=== PATIENT | female | born 1930 | race Caucasian/White ===

== ENCOUNTER 2016-08-08 12:07 | Outpatient (CLI) | payer MEDICARE, OTHER ==
--- NOTE | 2016-08-08 13:32 | XRAY Report ---
LEFT HIP AND PELVIS: 08/08/2016 CLINICAL INDICATION: Fall, left hip pain. FINDINGS: Frontal view of the hips and pelvis and frogleg lateral view of the left hip demonstrate n o evidence of fracture or dislocation. Mild osteoarthritis is present. Vascular calcifications are noted, and a pessary is present in the pelvis. IMPRESSION: MILD OSTEOARTHRITIS. NO EVIDENCE OF FRACTURE. JOB #: [id number] EXT JOB #:[id number]
== END 2016-08-08 12:08 | disposition home or self-care (01) ==
LOC: DI 12:07
PROVIDERS: ATTEND Internal Medicine
DX: M16.12 Unilateral primary osteoarthritis, left hip (principal)

== ENCOUNTER 2016-11-23 18:34 | Inpatient (IN) | payer MEDICARE, OTHER ==
[2016-11-23 19:16] LABS: BASOPHILS # (AUTO) 0.1 10^3/uL (0.0-0.1); EOSINOPHILS # (AUTO) 0.2 10^3/uL (0.0-0.7); EOSINOPHILS % (AUTO) 2.8 %; HCT - HEMATOCRIT 44.1 % (37.0-47.0); HGB - HEMOGLOBIN 14.6 g/dL (12.0-16.0); LYMPHOCYTES % (AUTO) 13.2 %; MEAN CORPUSCULAR HEMOGLOBIN 32.9 pg (27.0-31.0); MEAN CORPUSCULAR HGB CONC 33.2 g/dL (32.0-36.0); MEAN CORPUSCULAR VOLUME 99.2 fL (81.0-99.0); MEAN PLATELET VOLUME 7.7 fL (7.9-10.8); MONOCYTES # (AUTO) 0.6 10^3/uL (0.0-1.0); MONOCYTES % (AUTO) 7.7 %; NEUTROPHILS # (AUTO) 5.8 10^3/uL (1.5-6.6); NEUTROPHILS % (AUTO) 75.3 %; RED BLOOD COUNT 4.45 10^6/uL (4.20-5.40); UNCORRECTED WHITE BLOOD COUNT 7.7 x10^3/uL; WHITE BLOOD COUNT 7.7 x10^3/uL (4.8-10.8)
[2016-11-23] MEDS ORDERED: IPRATROPIUM/ALBUTEROL 3 ML NEB INH STA (19:24)
[2016-11-23 19:29] LABS: ALBUMIN/GLOBULIN RATIO 1.1 (1.0-2.2); BILIRUBIN,TOTAL 0.8 mg/dL (0.2-1.0); CALCIUM 9.5 mg/dL (8.5-10.3); CREATININE 1.5 mg/dL (0.4-1.0); POTASSIUM 4.2 mmol/L (3.5-5.0); TOTAL PROTEIN 6.7 g/dL (6.7-8.2)
--- NOTE | 2016-11-23 19:47 | XRAY Preliminary Report ---
Exam: XR Chest 2 View PA/LAT IMPRESSION: Acute on chronic lung disease consisting of right lung base infiltrates. [facility] SITE ID: [id number]
[2016-11-23] MEDS ORDERED: IPRATROPIUM/ALBUTEROL 3 ML NEB INH ONE (19:49)
--- NOTE | 2016-11-23 20:03 | XRAY Report ---
EXAM: CHEST RADIOGRAPHY EXAM DATE: 11/23/2016 07:41 p.m. CLINICAL HISTORY: Cough. COMPARISON: 12/18/2015. TECHNIQUE: 2 views. FINDINGS: Lungs/Pleura: Emphysematous changes. New interstitial infiltrates involving the periphery inferior zaman lf of right lung. Interval clearing of the left lung base airspace infiltrates and effusions. No vasc ular congestion nor pneumothorax. Mediastinum: Stable moderate cardiomegaly. No adenopathy. Other: Scoliosis. IMPRESSION: Acute on chronic lung disease consisting of right lung base infiltrates. [facility] Referring Provider Line: [phone] SITE ID: [id number]
[2016-11-23] MEDS ORDERED: FUROSEMIDE 40 MG/4 ML VIAL IVP STA (20:19)
[2016-11-23] MEDS ORDERED: cefTRIAXone 1 GM VIAL IVP STA (20:20)
[2016-11-23] MEDS ORDERED: AZITHROMYCIN INJ 500 MG in SODIUM CHLORIDE 0.9% 250 ML IV STA (20:20)
--- NOTE | 2016-11-23 20:21 | ED Physician Documentation ---
History of Present Illness - Stated complaint Stated Complaint: SOA - Chief complaint Chief Complaint: Resp - History obtained from History obtained from: Patient, Family - History of Present Illness Timing: How many days ago (4) Pain level max: 0 Pain level now: 0 Improved by: oxygen Worsened by: exertion - Additonal information Additional information: Female who presents to the emergency department states not feeling well for the past 3-4 days. Recently started on Levaquin for UTI. Has had increased coughing since that time. No fevers. She states she does not have a history of COPD, but does use 2 L O2 at home [place]. Patient also has a history of congestive heart failure. Review of Systems Ten Systems: 10 systems reviewed and negative Constitutional: denies: Fever, Chills Ears: denies: Ear pain Nose: denies: Rhinorrhea / runny nose, Congestion Throat: denies: Sore throat Cardiac: denies: Chest pain / pressure Respiratory: reports: Cough, Wheezing GI: denies: Abdominal Pain, Nausea, Vomiting, Diarrhea Skin: denies: Rash Musculoskeletal: denies: Neck pain, Back pain Neurologic: denies: Headache PD PAST MEDICAL HISTORY - Past Medical History Past Medical History: Yes Cardiovascular: Congestive heart failure, Hypertension Respiratory: None Neuro: None Endocrine/Autoimmune: None GI: None : Incontinence, Frequency HEENT: Glaucoma, Chronic hearing loss, Other Psych: None Musculoskeletal: Osteoarthritis Derm: Other - Past Surgical History Past Surgical History: Yes General: Appendectomy 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 HEENT: Cataracts Derm: Skin cancer surgery - Present Medications Home Medications: Ambulatory Orders Medication Instructions Recorded Confirmed Multivitamin [Multivitamins] 1 each PO DAILY 09/27/14 11/23/16 Ascorbic Acid [Vitamin C] 1,000 mg PO DAILY 12/18/15 11/23/16 Calcium Carbonate/Vitamin D3 1 each PO DAILY 12/18/15 11/23/16 [Calcium 600-Vit D3 400 Tablet] [place]-3S/Dha/Epa/Fish Oil [Fish 1 each PO DAILY 12/18/15 11/23/16 Oil 1,200 mg Softgel] Timolol 0.5% Ophth Drops [Timoptic 1 drops EACHEYE BID 12/19/15 11/23/16 0.5% Ophth Drops] Furosemide [Lasix] 40 mg PO DAILY #30 tablet 12/20/15 11/23/16 Potassium Chloride [Micro-K] 10 meq PO BIDWM #60 capsule 12/20/15 11/23/16 Lisinopril 20 mg PO DAILY 11/23/16 11/23/16 Metoprolol Succinate [Toprol Xl] 50 mg PO QPM 11/23/16 11/23/16 - Allergies Allergies/Adverse Reactions: Allergies Allergy/AdvReac Type Severity Reaction Status Date / Time No Known Drug Allergies Allergy Verified 11/23/16 18:50 - Social History Does the pt smoke?: No Smoking Status: Never smoker Does the pt drink ETOH?: Yes Does the pt have substance abuse?: No - Immunizations Immunizations are current?: Yes - POLST Patient has POLST: No PD ED PE NORMAL - Vitals Vital signs reviewed: Yes - General General: Alert and oriented X 3, No acute distress, Well developed/nourished - HEENT HEENT: PERRL, Moist mucous membranes - Neck Neck: Supple, no meningeal sign - Cardiac Cardiac: RRR - Respiratory Respiratory: No respiratory distress, Other (Diminished breath sounds, wheezing , crackles bilaterally) - Abdomen Abdomen: Soft, Non tender, Non distended - Derm Derm: Warm and dry, No rash - Extremities Extremities: No calf tenderness / cord, Other (2+ bilateral lower extremity edema) - Neuro Neuro: Alert and oriented X 3 - Psych Psych: Normal mood, Normal affect Results - Vitals Vitals: Vital Signs - 24 hr 11/23/16 11/23/16 11/23/16 18:37 19:00 19:53 Temperature 36.5 C Heart Rate 80 78 69 Respiratory 32 H 22 19 Rate Blood Pressure 114/61 115/76 O2 Saturation 83 L 94 11/23/16 11/23/16 20:45 20:59 Temperature 36.8 C Heart Rate 72 Respiratory 18 Rate Blood Pressure 105/75 O2 Saturation 99 Oxygen O2 Source [With Activity] Nasal cannula O2 Source [Without Activity] Room air O2 Source Room air Oxygen Flow Rate 3 - Labs Labs: Laboratory Tests 11/23/16 11/23/16 11/23/16 19:00 19:00 19:00 WBC 7.7 RBC 4.45 Hgb 14.6 Hct 44.1 MCV 99.2 H MCH 32.9 H MCHC 33.2 RDW 15.0 Plt Count 202 MPV 7.7 L Neut # 5.8 Lymph # 1.0 L [place] # 0.6 Eos # 0.2 Baso # 0.1 Absolute Nucleated RBC 0.00 Nucleated RBCs 0.0 Sodium 135 Potassium 4.2 Chloride 100 L Carbon Dioxide 26 Anion Gap 9.0 BUN 35 H Creatinine 1.5 H Estimated GFR (MDRD) 33 L Glucose 113 H Calcium 9.5 Total Bilirubin 0.8 AST 32 ALT 20 Alkaline Phosphatase 50 B-Natriuretic Peptide 1554 H Total Protein 6.7 Albumin 3.5 Globulin 3.2 Albumin/Globulin Ratio 1.1 Lipase 38 Urine Color Urine Clarity Urine pH Ur Specific [place] Urine Protein Urine Glucose (UA) Urine Ketones Urine Occult Blood Urine Nitrite Urine Bilirubin Urine Urobilinogen Ur Leukocyte Esterase Urine RBC Urine WBC Ur Squamous Epith Cells Urine Bacteria Ur Microscopic Review Urine Culture Comments 11/23/16 20:20 WBC RBC Hgb Hct MCV MCH MCHC RDW Plt Count MPV Neut # Lymph # [place] # Eos # Baso # Absolute Nucleated RBC Nucleated RBCs Sodium Potassium Chloride Carbon Dioxide Anion Gap BUN Creatinine Estimated GFR (MDRD) Glucose Calcium Total Bilirubin AST ALT Alkaline Phosphatase B-Natriuretic Peptide Total Protein Albumin Globulin Albumin/Globulin Ratio Lipase Urine Color YELLOW Urine Clarity SL. CLOUDY Urine pH 6.5 Ur Specific [place] 1.015 Urine Protein NEGATIVE Urine Glucose (UA) NEGATIVE Urine Ketones NEGATIVE Urine Occult Blood TRACE-INTA Urine Nitrite NEGATIVE Urine Bilirubin NEGATIVE Urine Urobilinogen 0.2 (NORMAL) Ur Leukocyte Esterase LARGE H Urine RBC 0-5 Urine WBC >25 H Ur Squamous Epith Cells MANY Squamous H Urine Bacteria None Seen Ur Microscopic Review INDICATED Urine Culture Comments NOT INDICATED - Rads (name of study) cxr Radiology: Prelim report reviewed, EMP read contemporaneously, See rad report ( Acute on chronic lung disease consisting of right lung base infiltrates. 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 She is found to have a right lower lobe pneumonia as well as what appears to be a CHF exacerbation. States that she has never been diagnosed with COPD, but is pursed lip breathing and her smoked in the house for many years. She does feel better after nebulizer treatment. Discussed the case with the hospitalist, who accepts. How she has already been on Levaquin, we will continue this as an inpatient. Baseline BNP is approx 400-500 This document was made in part using voice recognition software. While efforts are made to proofread this document, sound alike and grammatical errors may occur. Departure - Departure Disposition: [facility] DC/Xfer Clinical Impression: Hypoxia Pneumonia Qualifiers: Pneumonia type: due to unspecified organism Laterality: right Lung location: lower lobe of lung Qualified Code(s): J18.1 - Lobar pneumonia, unspecified organism CHF exacerbation Qualifiers: Congestive heart failure type: unspecified congestive heart failure type Qualified Code(s): I50.9 - Heart failure, unspecified Condition: Stable Discharge Date/Time: 11/23/16 22:40
[2016-11-23 20:37] LABS: BILIRUBIN,URINE NEGATIVE (NEGATIVE); PH,URINE 6.5 PH (5.0-7.5)
[2016-11-23] MEDS ORDERED: FUROSEMIDE 40 MG/4 ML VIAL ONE (20:39)
[2016-11-23] MEDS ORDERED: cefTRIAXone 1 GM VIAL ONE (20:39)
[2016-11-23 20:42] LABS: UA w/ MICROSCOPIC CHARGE YES
[2016-11-23 20:55] LABS: UR CULTURE IF IND NOT INDICATED; WBC,URINE >25 /HPF (0-5)
[2016-11-23] MEDS ORDERED: SODIUM CHLORIDE FLUSH 0.9% 10 ML SYRINGE IVP PRN (21:42)
[2016-11-23 22:36] LABS: BASOPHILS # (AUTO) 0.1 10^3/uL (0.0-0.1); BASOPHILS % (AUTO) 1.1 %; EOSINOPHILS # (AUTO) 0.2 10^3/uL (0.0-0.7); EOSINOPHILS % (AUTO) 2.5 %; HCT - HEMATOCRIT 44.4 % (37.0-47.0); HGB - HEMOGLOBIN 14.5 g/dL (12.0-16.0); LYMPHOCYTES # (AUTO) 0.9 10^3/uL (1.5-3.5); LYMPHOCYTES % (AUTO) 12.7 %; MEAN CORPUSCULAR HEMOGLOBIN 32.8 pg (27.0-31.0); MEAN CORPUSCULAR HGB CONC 32.7 g/dL (32.0-36.0); MEAN CORPUSCULAR VOLUME 100.2 fL (81.0-99.0); MEAN PLATELET VOLUME 7.6 fL (7.9-10.8); MONOCYTES # (AUTO) 0.5 10^3/uL (0.0-1.0); MONOCYTES % (AUTO) 7.6 %; NEUTROPHILS # (AUTO) 5.3 10^3/uL (1.5-6.6); NEUTROPHILS % (AUTO) 76.1 %; NUCLEATED RED BLOOD CELLS AUTO 0.1 /100WBC; RED BLOOD COUNT 4.43 10^6/uL (4.20-5.40); RED CELL DISTRIBUTION WIDTH 15.2 % (12.0-15.0); UNCORRECTED WHITE BLOOD COUNT 6.9 x10^3/uL; WHITE BLOOD COUNT 6.9 x10^3/uL (4.8-10.8)
[2016-11-23 22:44] LABS: CREATININE 1.4 mg/dL (0.4-1.0); MAGNESIUM 2.1 mg/dL (1.7-2.8); POTASSIUM 3.9 mmol/L (3.5-5.0)
--- NOTE | 2016-11-24 00:48 | HISTORY & PHYSICAL EXAMINATION ---
Chief Complaint - Chief Complaint Chief Complaint: weakness History of Present Illness - Admitted From Admitted From:: ED - History Obtained From History obtained from: patient and daughter - History of Present Illness HPI Comment/Other: Patient is an 86 y/o female who was brought in by her daughter today because she was noticed to be increasingly weak and somewhat confused. He daughter reports that the patient usually presents this way whenever she has an infection. She also seemed to have a decreased appetite today and went to bed at 6pm. She was seen by her PCP on 11/21/16 where she was diagnose with pneumonia based on clinical exam and a UTI after a urine dipstick was done. and was started on levaquin She reports some BE. She is usually on 2L of Oxygen N? C. She denies chest pain, coughing or fever. She denies abdominal pain, nausea or vomiting. She has been experiencing urinary frequency as well. In the ED an image of the chest confirmed the pneumonia. She was also found to have an elevated BNP at 1500. Review of Systems - Constitutional Constitutional: reports: Fatigue, Weakness, Poor appetite. denies: Fever, Diaphoresis, Night sweats - Eyes Eyes: denies: Pain, Irritation, Blurred vision, Vision loss, Dipolpia - Ears, Nose & Throat Ears, Nose & Throat: denies: Hearing loss, Vertigo, Nasal pain - Cardiovascular Cariovascular: denies: Irregular heart rate, Palpitations, Chest pain, Edema, Syncope - Respiratory Respiratory: reports: SOB at rest. denies: Wheezing - Gastrointestinal Gastrointestinal: denies: Abdominal pain, Abdominal distention, Constipation, Diarrhea, Nausea, Vomiting - Genitourinary Genitourinary: reports: Frequency. denies: Dysuria, Urgency, Flank pain - Musculoskeletal Musculoskeletal: denies: Muscle pain, Back pain - Integumentary Integumentary: denies: Rash, Pruritis, Lesions - Neurological Neurological: denies: Focal weakness, Headache, Dizziness, Numbness - Psychiatric Psychiatric: denies: Depression, Anxiety, Suicidal - Endocrine Endocrine: denies: Polyphagia, Intolerance to cold - Hematologic/Lymphatic Hematologic/Lymphatic: denies: Anemia, Bruising, Petechiae, Blood clots History - Past Medical History Cardiovascular: reports: Congestive heart failure, Hypertension Respiratory: reports: None Neuro: reports: None Endocrine/Autoimmune: reports: None GI: reports: None : reports: Incontinence, Frequency HEENT: reports: Glaucoma, Chronic hearing loss, Other Psych: reports: None Musculoskeletal: reports: Osteoarthritis Derm: reports: Other MRSA Hx?: No Other Past Medical History: warts removed, precancerous lesions removed - Past Surgical History General: reports: Appendectomy 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: 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: Other HEENT: reports: Cataracts Derm: reports: Skin cancer surgery - Family & Social History Family History: Mother: (old age), Hypertension, Father: , Sister: Hypertension Living arrangement: At home Living Situation: Other (daughter and her family) - Substance History Use: Uses substance without health or social issues: NONE, Alcohol (a glass of wine with dinner) Abuse: Recurrent use of substance despite neg consequences: NONE Dependence: Experiences withdrawal or developed tolerances: NONE - POLST Patient has POLST: No Meds/Allgy - Home Medications Home Medications: Ambulatory Orders Medication Instructions Recorded Confirmed Multivitamin [Multivitamins] 1 each PO DAILY 09/27/14 11/23/16 Ascorbic Acid [Vitamin C] 1,000 mg PO DAILY 12/18/15 11/23/16 Calcium Carbonate/Vitamin D3 1 each PO DAILY 12/18/15 11/23/16 [Calcium 600-Vit D3 400 Tablet] [place]-3S/Dha/Epa/Fish Oil [Fish 1 each PO DAILY 12/18/15 11/23/16 Oil 1,200 mg Softgel] Timolol 0.5% Ophth Drops [Timoptic 1 drops EACHEYE BID 12/19/15 11/23/16 0.5% Ophth Drops] Furosemide [Lasix] 40 mg PO DAILY #30 tablet 12/20/15 11/23/16 Potassium Chloride [Micro-K] 10 meq PO BIDWM #60 capsule 12/20/15 11/23/16 Lisinopril 20 mg PO DAILY 11/23/16 11/23/16 Metoprolol Succinate [Toprol Xl] 50 mg PO QPM 11/23/16 11/23/16 - Allergies Allergies/Adverse Reactions: Allergies Allergy/AdvReac Type Severity Reaction Status Date / Time No Known Drug Allergies Allergy Verified 11/23/16 18:50 Exam - Vital Signs Vital Signs: Vital Signs x48h Temp Pulse Pulse Resp BP BP Pulse Ox 11/23/16 23:00 36.3 C L 69 20 102/61 94 11/23/16 22:06 77 18 158/87 H 96 - Physical Exam General Appearance: positive: No acute distress, Alert Eyes Bilateral: positive: Normal inspection, PERRL, EOMI ENT: positive: ENT inspection nml, Pharynx nml, No signs of dehydration Neck: positive: Nml inspection, No JVD Respiratory: positive: Chest non-tender, No respiratory distress, Other (coarse breath sounds bilaterally). negative: Wheezes Cardiovascular: positive: Regular rate & rhythm, No murmur Abdomen: positive: Non-tender, No organomegaly, Nml bowel sounds, No distention Skin: positive: Color nml, No rash Extremities: positive: Non-tender, Nml appearance, No pedal edema Neurologic/Psychiatric: positive: Oriented x3 Conclusion/Plan - Problem List (1) Community acquired bacterial pneumonia Conclusion/Plan: Acute On levaquin 750 mg IV q48hrs (2) CHF exacerbation Conclusion/Plan: Lasix 20 mg IV bid Daily weights Restrict daily sodium intake to 2gm Chek BNP daily Qualifiers: Congestive heart failure type: unspecified congestive heart failure type Qualified Code(s): I50.9 - Heart failure, unspecified (3) Hypertension Conclusion/Plan: Uncontrolled Continue lisinopril and metoprolol Qualifiers: Hypertension type: essential hypertension Qualified Code(s): I10 - Essential (primary) hypertension (4) Glaucoma Conclusion/Plan: Stable Continue timolol opthalmic drops - Lab Results Fish Bones: 11/23/16 22:23 11/23/16 22:23 Issues/Core Measures - Anticipated LOS Anticipated Stay Length: 2 or more midnights - DVT/VTE - Prophylaxis VTE/DVT Device ordered at admit?: Yes VTE/DVT Prophylaxis med ordered at admit?: Yes
[2016-11-24] MEDS: SODIUM CHLORIDE FLUSH 0.9% 10 ML SYRINGE IVP SCH ×4 (00:56→21:06)
[2016-11-24] MEDS ORDERED: FUROSEMIDE 20 MG/2 ML VIAL IVP SCH (06:00)
[2016-11-24 06:57] LABS: BASOPHILS # (AUTO) 0.1 10^3/uL (0.0-0.1); BASOPHILS % (AUTO) 0.8 %; EOSINOPHILS # (AUTO) 0.2 10^3/uL (0.0-0.7); EOSINOPHILS % (AUTO) 2.9 %; HCT - HEMATOCRIT 42.3 % (37.0-47.0); LYMPHOCYTES # (AUTO) 0.9 10^3/uL (1.5-3.5); LYMPHOCYTES % (AUTO) 12.1 %; MEAN CORPUSCULAR HEMOGLOBIN 33.1 pg (27.0-31.0); MEAN CORPUSCULAR HGB CONC 33.1 g/dL (32.0-36.0); MEAN CORPUSCULAR VOLUME 99.9 fL (81.0-99.0); MEAN PLATELET VOLUME 7.6 fL (7.9-10.8); MONOCYTES # (AUTO) 0.6 10^3/uL (0.0-1.0); MONOCYTES % (AUTO) 8.7 %; NEUTROPHILS # (AUTO) 5.3 10^3/uL (1.5-6.6); NEUTROPHILS % (AUTO) 75.5 %; RED BLOOD COUNT 4.23 10^6/uL (4.20-5.40); RED CELL DISTRIBUTION WIDTH 14.9 % (12.0-15.0)
[2016-11-24 07:09] LABS: CALCIUM 8.2 mg/dL (8.5-10.3); CREATININE 1.4 mg/dL (0.4-1.0); POTASSIUM 3.4 mmol/L (3.5-5.0)
[2016-11-24] MEDS ORDERED: POTASSIUM CHLORIDE 20 MEQ TABLET PO ONE (08:45)
[2016-11-24] MEDS: LISINOPRIL 20 MG TABLET PO SCH (08:54)
[2016-11-24] MEDS: TIMOLOL 0.5% OPHTH DROPS EACHEYE SCH ×2 (08:55→21:17)
[2016-11-24] MEDS: HEPARIN 5,000 UNIT/ML VIAL SUBQ SCH ×2 (08:57→21:07)
[2016-11-24] MEDS: POTASSIUM CHLORIDE 10 MEQ CAPSULE PO SCH ×2 (08:57→17:03)
[2016-11-24] MEDS: POLYETHYLENE GLYCOL 3350 17 GM PACKET PO SCH (09:00)
[2016-11-24] MEDS ORDERED: PETROLATUM WHITE 5 GM PACKET TOP PRN (11:52)
--- NOTE | 2016-11-24 14:23 | PROVIDER PROGRESS NOTE ---
Subjective - Prog Note Date Prog Note Date: 11/24/16 Prog Note Time: 14:18 - Subjective Pt reports feeling: Improved Subjective: she has Chronic shortness of breath. She was diagnosed with congestive heart failure little over a year ago which manifested as dyspnea on exertion. She is able to walk in her home from room to room as long as she rests. Over the last 2 weeks she is gotten progressively more short of breath and it was acute enough that she came to the emergency room and that so she was found to have pneumonia. Walking from the family room to the next bc of a step was impossible the last 2 days. Between yesterday and today she is received IV antibiotics. 1 dose of Levaquin 750 mg.z Lasix 40 mg once then 20 mg this am. She was able to get up and walk around in the room, walk to the bathroom. She is definitely very dyspneic on exertion but she tells me she could not have done this the day before yesterday. She denies chest pain, palpitations. No abdominal pain. Does have a poor appetite. Current Medications - Current Medications Current Medications: Active Medications Furosemide (Lasix Inj 20mg Vial) 20 mg IVP BIDDIURETIC [facility] Last Admin: 11/24/16 06:07 Dose: 20 mg Heparin Sodium (Porcine) () 5,000 unit SUBQ BID [facility] Last Admin: 11/24/16 08:57 Dose: 5,000 unit Levofloxacin (Levaquin 750 Mg/150 Ml) 150 mls @ 100 mls/hr IV Q48H [facility] Last Admin: 11/24/16 00:56 Dose: 100 mls/hr Lisinopril (Zestril) 20 mg PO DAILY [facility] Last Admin: 11/24/16 08:54 Dose: Not Given Metoprolol Succinate (Toprol Xl) 50 mg PO QPM [facility] Petrolatum (Vaseline) 5 gm TOP PRN PRN PRN Reason: Dry Lips Polyethylene Glycol (Miralax) 17 gm PO DAILY [facility] Last Admin: 11/24/16 09:00 Dose: 17 gm Potassium Chloride (Micro-K) 10 meq PO BIDWM [facility] Last Admin: 11/24/16 08:57 Dose: 10 meq Sodium Chloride (Normal Saline Flush 0.9%) 10 ml IVP PRN PRN PRN Reason: NEEDED PER PROVIDER ORDERS Sodium Chloride (Normal Saline Flush 0.9%) 10 ml IVP Q8HR [facility] Last Admin: 11/24/16 06:06 Dose: 10 ml Timolol Maleate (Timoptic 0.5% Ophth Drops) 1 drops EACHEYE BID [facility] Last Admin: 11/24/16 08:55 Dose: 1 drops Multivitamin [Multivitamins] 1 each PO DAILY 09/27/14 Ascorbic Acid [Vitamin C] 1,000 mg PO DAILY 12/18/15 Calcium Carbonate/Vitamin D3 [Calcium 600-Vit D3 400 Tablet] 1 each PO DAILY [place]-3S/Dha/Epa/Fish Oil [Fish Oil 1,200 mg Softgel] 1 each PO DAILY 12/18/15 Timolol 0.5% Ophth Drops [Timoptic 0.5% Ophth Drops] 1 drops EACHEYE BID Lisinopril 20 mg PO DAILY 11/23/16 Metoprolol Succinate [Toprol Xl] 50 mg PO QPM 11/23/16 Objective - Vital Signs/Intake & Output Reviewed Vital Signs: Yes Vital Signs: Vital Signs x48h Temp Pulse Resp BP Pulse Ox 11/24/16 14:07 36.2 C L 80 18 91/76 96 11/24/16 07:59 36.4 C L 79 16 98/56 L 94 Intake & Output: Intake & Output 11/21/16 11/22/16 11/23/16 11/24/16 23:59 23:59 23:59 23:59 Intake Total 510 Output Total 575 50 Balance -575 460 - Objective General Appearance: positive: No acute distress, Alert, Other (frail, tiny, elderly female with glasses) Eyes Bilateral: positive: PERRL, EOMI ENT: positive: Pharynx nml Neck: positive: No JVD. negative: Lymphadenopathy (R), Lymphadenopathy (L), Carotid bruit Respiratory: positive: Chest non-tender, No respiratory distress (at rest but RN reports tachypnea with getting up to the bathroom), Rales. negative: Wheezes , Rhonchi Cardiovascular: positive: Regular rate & rhythm, Systolic murmur. negative: Gallop/S4, Friction rub Skin: positive: Warm, Dry Extremities: positive: Non-tender, No pedal edema Neurologic/Psychiatric: positive: Oriented x3, CN's nml (2-12), Motor nml - Lab Results Fish Bones: 11/24/16 06:20 11/24/16 06:20 Other Labs: Lab Results x24hrs 11/24/16 11/24/16 11/24/16 Range/Units 06:20 06:20 06:20 WBC 7.0 (4.8-10.8) x10^3/uL RBC 4.23 (4.20-5.40) 10^6/uL Hgb 14.0 (12.0-16.0) g/dL Hct 42.3 (37.0-47.0) % MCV 99.9 H (81.0-99.0) fL MCH 33.1 H (27.0-31.0) pg MCHC 33.1 (32.0-36.0) g/dL RDW 14.9 (12.0-15.0) % Plt Count 183 (130-450) 10^3/uL MPV 7.6 L (7.9-10.8) fL Neut # 5.3 (1.5-6.6) 10^3/uL Lymph # 0.9 L (1.5-3.5) 10^3/uL [place] # 0.6 (0.0-1.0) 10^3/uL Eos # 0.2 (0.0-0.7) 10^3/uL Baso # 0.1 (0.0-0.1) 10^3/uL Absolute Nucleated RBC 0.00 x10^3/uL Nucleated RBCs 0.0 /100WBC Sodium 137 (135-145) mmol/L Potassium 3.4 L (3.5-5.0) mmol/L Chloride 103 (101-111) mmol/L Carbon Dioxide 24 (21-32) mmol/L Anion Gap 10.0 (6-13) BUN 31 H (6-20) mg/dL Creatinine 1.4 H (0.4-1.0) mg/dL Estimated GFR (MDRD) 36 L (>89) Glucose 93 (70-100) mg/dL Calcium 8.2 L (8.5-10.3) mg/dL Magnesium (1.7-2.8) mg/dL B-Natriuretic Peptide 1623 H (5-100) pg/mL 11/23/16 11/23/16 Range/Units 22:23 22:23 WBC 6.9 (4.8-10.8) x10^3/uL RBC 4.43 (4.20-5.40) 10^6/uL Hgb 14.5 (12.0-16.0) g/dL Hct 44.4 (37.0-47.0) % MCV 100.2 H (81.0-99.0) fL MCH 32.8 H (27.0-31.0) pg MCHC 32.7 (32.0-36.0) g/dL RDW 15.2 H (12.0-15.0) % Plt Count 173 (130-450) 10^3/uL MPV 7.6 L (7.9-10.8) fL Neut # 5.3 (1.5-6.6) 10^3/uL Lymph # 0.9 L (1.5-3.5) 10^3/uL [place] # 0.5 (0.0-1.0) 10^3/uL Eos # 0.2 (0.0-0.7) 10^3/uL Baso # 0.1 (0.0-0.1) 10^3/uL Absolute Nucleated RBC 0.01 x10^3/uL Nucleated RBCs 0.1 /100WBC Sodium 135 (135-145) mmol/L Potassium 3.9 (3.5-5.0) mmol/L Chloride 100 L (101-111) mmol/L Carbon Dioxide 24 (21-32) mmol/L Anion Gap 11.0 (6-13) BUN 34 H (6-20) mg/dL Creatinine 1.4 H (0.4-1.0) mg/dL Estimated GFR (MDRD) 36 L (>89) Glucose 126 H (70-100) mg/dL Calcium 9.0 (8.5-10.3) mg/dL Magnesium 2.1 (1.7-2.8) mg/dL B-Natriuretic Peptide (5-100) pg/mL Assessment/Plan - Problem List (1) Community acquired bacterial pneumonia Impression: present on admission. Acute. On levaquin 750 mg IV q48hrs Will change to 500mg daily. (2) acute on chronic diastolic CHF Conclusion/Plan: Present on admission. History of diastolic CHF on 11/2015 ECHO with preserved LVEF of 75%. Had LAE but no significant valvular heart disease. No pulmonary HTN. Lasix 20 mg IV bid was started and I will increase to 40 mg IVP bid since BNP not responding and I/O not negative Daily weights Restrict daily sodium intake to 2gm BNP is 1623 and up from the 1554 of admission (3) Hypertension Conclusion/Plan: Hypotensive from CHF. Continue lisinopril and metoprolol Qualifiers: Hypertension type: essential hypertension Qualified Code(s): I10 - Essential (primary) hypertension (4) Glaucoma Conclusion/Plan: Stable Continue timolol opthalmic drops (5) Dyspnea with exertion. From CHF and pneumonia. Working with PT. Family wants her home and not at SNF so goal is home with HH and PT.
[2016-11-24] MEDS: FUROSEMIDE 40 MG/4 ML VIAL IVP SCH (17:02)
[2016-11-24] MEDS ORDERED: METOPROLOL SUCCINATE 50 MG TABLET PO SCH (21:00)
[2016-11-25 06:17] LABS: BASOPHILS # (AUTO) 0.1 10^3/uL (0.0-0.1); CALCIUM 8.9 mg/dL (8.5-10.3); CREATININE 1.5 mg/dL (0.4-1.0); EOSINOPHILS # (AUTO) 0.2 10^3/uL (0.0-0.7); EOSINOPHILS % (AUTO) 3.8 %; HCT - HEMATOCRIT 43.7 % (37.0-47.0); HGB - HEMOGLOBIN 14.4 g/dL (12.0-16.0); LYMPHOCYTES % (AUTO) 15.5 %; MEAN CORPUSCULAR HEMOGLOBIN 33.1 pg (27.0-31.0); MEAN CORPUSCULAR HGB CONC 32.9 g/dL (32.0-36.0); MEAN CORPUSCULAR VOLUME 100.5 fL (81.0-99.0); MEAN PLATELET VOLUME 7.9 fL (7.9-10.8); MONOCYTES # (AUTO) 0.5 10^3/uL (0.0-1.0); MONOCYTES % (AUTO) 8.1 %; NEUTROPHILS # (AUTO) 4.4 10^3/uL (1.5-6.6); NEUTROPHILS % (AUTO) 71.6 %; NUCLEATED RED BLOOD CELLS AUTO 0.1 /100WBC; POTASSIUM 3.9 mmol/L (3.5-5.0); RED BLOOD COUNT 4.34 10^6/uL (4.20-5.40); UNCORRECTED WHITE BLOOD COUNT 6.2 x10^3/uL; WHITE BLOOD COUNT 6.2 x10^3/uL (4.8-10.8)
[2016-11-25] MEDS: FUROSEMIDE 40 MG/4 ML VIAL IVP SCH ×2 (06:23→15:23)
[2016-11-25] MEDS: SODIUM CHLORIDE FLUSH 0.9% 10 ML SYRINGE IVP SCH ×3 (06:23→22:39)
--- NOTE | 2016-11-25 08:29 | PROVIDER PROGRESS NOTE ---
Subjective - Prog Note Date Prog Note Date: 11/25/16 Prog Note Time: 08:29 - Subjective Subjective: she feels good.but still storey with walking to bathroom. prefers the bedside commode. had 700 cc this am with one Current Medications - Current Medications Current Medications: Active Medications Furosemide (Lasix Inj 40 Mg Vial) 40 mg IVP BIDDIURETIC [facility] Last Admin: 11/25/16 06:23 Dose: 40 mg Heparin Sodium (Porcine) () 5,000 unit SUBQ BID [facility] Last Admin: 11/24/16 21:07 Dose: 5,000 unit Levofloxacin (Levaquin 250 Mg/50 Ml) 50 mls @ 50 mls/hr IV Q24H [facility] Last Admin: 11/24/16 21:06 Dose: 50 mls/hr Lisinopril (Zestril) 20 mg PO DAILY [facility] Last Admin: 11/24/16 08:54 Dose: Not Given Metoprolol Succinate (Toprol Xl) 50 mg PO QPM [facility] Last Admin: 11/24/16 21:06 Dose: 50 mg Petrolatum (Vaseline) 5 gm TOP PRN PRN PRN Reason: Dry Lips Polyethylene Glycol (Miralax) 17 gm PO DAILY [facility] Last Admin: 11/24/16 09:00 Dose: 17 gm Potassium Chloride (Micro-K) 10 meq PO BIDWM [facility] Last Admin: 11/24/16 17:03 Dose: 10 meq Sodium Chloride (Normal Saline Flush 0.9%) 10 ml IVP PRN PRN PRN Reason: NEEDED PER PROVIDER ORDERS Last Admin: 11/24/16 17:02 Dose: 10 ml Sodium Chloride (Normal Saline Flush 0.9%) 10 ml IVP Q8HR [facility] Last Admin: 11/25/16 06:23 Dose: 10 ml Timolol Maleate (Timoptic 0.5% Ophth Drops) 1 drops EACHEYE BID [facility] Last Admin: 11/24/16 21:17 Dose: Not Given Multivitamin [Multivitamins] 1 each PO DAILY 09/27/14 Ascorbic Acid [Vitamin C] 1,000 mg PO DAILY 12/18/15 Calcium Carbonate/Vitamin D3 [Calcium 600-Vit D3 400 Tablet] 1 each PO DAILY [place]-3S/Dha/Epa/Fish Oil [Fish Oil 1,200 mg Softgel] 1 each PO DAILY 12/18/15 Timolol 0.5% Ophth Drops [Timoptic 0.5% Ophth Drops] 1 drops EACHEYE BID Lisinopril 20 mg PO DAILY 11/23/16 Metoprolol Succinate [Toprol Xl] 50 mg PO QPM 11/23/16 Objective - Vital Signs/Intake & Output Reviewed Vital Signs: Yes Vital Signs: Vital Signs x48h Temp Pulse Resp BP Pulse Ox 11/25/16 08:18 36.3 C L 69 18 136/69 H 100 Intake & Output: Intake & Output 11/22/16 11/23/16 11/24/16 11/25/16 23:59 23:59 23:59 23:59 Intake Total 990 340 Output Total 575 50 250 Balance -575 940 90 - Objective General Appearance: positive: No acute distress, Alert, Other (tiny frail elderly female with glasses, cheerful, wants to go home tomorrow) Eyes Bilateral: positive: PERRL, EOMI ENT: positive: Pharynx nml Neck: positive: No JVD. negative: Stiff neck, Carotid bruit Respiratory: positive: Chest non-tender, Rales. negative: Wheezes, Rhonchi Cardiovascular: positive: Regular rate & rhythm, Systolic murmur. negative: Gallop/S4, Friction rub Abdomen: positive: Non-tender, No organomegaly, Nml bowel sounds, No distention Extremities: positive: Non-tender, Pedal edema Neurologic/Psychiatric: positive: Oriented x3, CN's nml (2-12), Motor nml - Lab Results Fish Bones: 11/25/16 05:42 11/25/16 05:42 Other Labs: Lab Results x24hrs 11/25/16 11/25/16 Range/Units 05:42 05:42 WBC 6.2 (4.8-10.8) x10^3/uL RBC 4.34 (4.20-5.40) 10^6/uL Hgb 14.4 (12.0-16.0) g/dL Hct 43.7 (37.0-47.0) % MCV 100.5 H (81.0-99.0) fL MCH 33.1 H (27.0-31.0) pg MCHC 32.9 (32.0-36.0) g/dL RDW 15.0 (12.0-15.0) % Plt Count 189 (130-450) 10^3/uL MPV 7.9 (7.9-10.8) fL Neut # 4.4 (1.5-6.6) 10^3/uL Lymph # 1.0 L (1.5-3.5) 10^3/uL [place] # 0.5 (0.0-1.0) 10^3/uL Eos # 0.2 (0.0-0.7) 10^3/uL Baso # 0.1 (0.0-0.1) 10^3/uL Absolute Nucleated RBC 0.01 x10^3/uL Nucleated RBCs 0.1 /100WBC Sodium 140 (135-145) mmol/L Potassium 3.9 (3.5-5.0) mmol/L Chloride 105 (101-111) mmol/L Carbon Dioxide 26 (21-32) mmol/L Anion Gap 9.0 (6-13) BUN 35 H (6-20) mg/dL Creatinine 1.5 H (0.4-1.0) mg/dL Estimated GFR (MDRD) 33 L (>89) Glucose 104 H (70-100) mg/dL Calcium 8.9 (8.5-10.3) mg/dL Assessment/Plan - Problem List (1) Community acquired bacterial pneumonia Impression: present on admission. Acute. On levaquin 750 mg IV q48hrs Will change to 500mg daily. Blood C&S negative Today is day #3 Plan is dc in am if not too sob. (2) acute on chronic diastolic CHF Conclusion/Plan: Present on admission. History of diastolic CHF on 11/2015 ECHO with preserved LVEF of 75%. Had LAE but no significant valvular heart disease. No pulmonary HTN. ECHO yesterday without real change. Lasix 20 mg IV bid was started and I increased to 40 mg IVP bid since BNP not responding and I/O not negative . Feels better just not reflected in I/O Daily weights Restrict daily sodium intake to 2gm BNP is 1623 yesterday and up from the 1554 of admission (3) Hypertension Conclusion/Plan: Hypotensive from CHF. Continue lisinopril and metoprolol Qualifiers: Hypertension type: essential hypertension Qualified Code(s): I10 - Essential (primary) hypertension (4) Glaucoma Conclusion/Plan: Stable Continue timolol opthalmic drops (5) Dyspnea with exertion. From CHF and pneumonia and centrilobular emphysema. I gave a copy of report to daughter and also described anatomy and pathophysiology at length. We spent 15 minutes discussing POLST form and that was filled out. She is DNR/ DNI. Working with PT and desats to 80's on 3 liters. Family wants her home and not at SNF so goal is home with HH and PT.
[2016-11-25] MEDS: POTASSIUM CHLORIDE 10 MEQ CAPSULE PO SCH ×2 (10:00→20:14)
[2016-11-25] MEDS: HEPARIN 5,000 UNIT/ML VIAL SUBQ SCH ×2 (10:01→20:13)
[2016-11-25] MEDS: LISINOPRIL 20 MG TABLET PO SCH (10:01)
[2016-11-25] MEDS: TIMOLOL 0.5% OPHTH DROPS EACHEYE SCH ×2 (10:01→20:15)
[2016-11-25] MEDS: POLYETHYLENE GLYCOL 3350 17 GM PACKET PO SCH (10:58)
[2016-11-25] MEDS ORDERED: LISINOPRIL 20 MG TABLET PO SCH (19:00)
[2016-11-25] MEDS ORDERED: METOPROLOL SUCCINATE 50 MG TABLET PO SCH (19:00)
[2016-11-26 05:14] LABS: BASOPHILS # (AUTO) 0.1 10^3/uL (0.0-0.1); BASOPHILS % (AUTO) 1.1 %; EOSINOPHILS # (AUTO) 0.3 10^3/uL (0.0-0.7); EOSINOPHILS % (AUTO) 4.8 %; HGB - HEMOGLOBIN 14.4 g/dL (12.0-16.0); LYMPHOCYTES % (AUTO) 15.3 %; MEAN CORPUSCULAR HGB CONC 32.8 g/dL (32.0-36.0); MEAN CORPUSCULAR VOLUME 100.4 fL (81.0-99.0); MEAN PLATELET VOLUME 7.6 fL (7.9-10.8); MONOCYTES # (AUTO) 0.6 10^3/uL (0.0-1.0); NEUTROPHILS # (AUTO) 4.6 10^3/uL (1.5-6.6); NEUTROPHILS % (AUTO) 69.8 %; RED BLOOD COUNT 4.38 10^6/uL (4.20-5.40); RED CELL DISTRIBUTION WIDTH 14.8 % (12.0-15.0); UNCORRECTED WHITE BLOOD COUNT 6.6 x10^3/uL; WHITE BLOOD COUNT 6.6 x10^3/uL (4.8-10.8)
[2016-11-26 05:20] LABS: CALCIUM 9.3 mg/dL (8.5-10.3); CREATININE 1.3 mg/dL (0.4-1.0)
[2016-11-26] MEDS: FUROSEMIDE 40 MG/4 ML VIAL IVP SCH ×2 (06:16→14:36)
[2016-11-26] MEDS: SODIUM CHLORIDE FLUSH 0.9% 10 ML SYRINGE IVP SCH ×2 (06:17→14:36)
[2016-11-26] MEDS: POTASSIUM CHLORIDE 10 MEQ CAPSULE PO SCH (09:18)
[2016-11-26] MEDS: HEPARIN 5,000 UNIT/ML VIAL SUBQ SCH (09:19)
--- NOTE | 2016-11-26 13:56 | Discharge Plan ---
Discharge Plan Disposition: 01 Home, Self Care Condition: Fair Prescriptions: Levofloxacin [Levaquin] 500 mg PO DAILY #4 tablet Diet: Regular Activity Restrictions: Activity as Tolerated Shower Restrictions: Yes (suggest a shower chair) Driving Restrictions: Yes (none) Assistance Devices: Walker Weight Bearing: Full Weight Additional Instructions or Follow Up instructions: take Levaquin pills daily until gone Use your oxygen as directed. Follow up with Dr. Catherine in the next week to 2 weeks Thank you, Dr. Fish No Smoking: If you smoke, Please STOP! Call for help. Follow-up with: Awilda Catherine MD [Primary Care Provider] - 2 Weeks
[2016-11-26 14:24] VITALS: BP 120/79
[2016-11-26] MEDS: TIMOLOL 0.5% OPHTH DROPS EACHEYE SCH (14:35)
[2016-11-26] MEDS: POLYETHYLENE GLYCOL 3350 17 GM PACKET PO SCH (14:35)
--- NOTE | 2016-11-27 06:16 | DISCHARGE SUMMARY ---
DATE OF ADMISSION: 11/23/2016 DATE OF DISCHARGE: 11/26/2016 PRIMARY CARE PHYSICIAN: Awilda Catherine MD. ADMISSION DIAGNOSES: 1. Community acquired bacterial pneumonia. 2. Congestive heart failure exacerbation. 3. Hypertension, uncontrolled. 4. Glaucoma. DISCHARGE DIAGNOSES: 1. Community-acquired pneumonia with clinical improvement on Levaquin. 2. Congestive heart failure exacerbation secondary to diastolic dysfunction, improved. 3. Hypertension, improved. 4. Glaucoma, stable. SPECIAL PROCEDURES: Echocardiogram findings: The patient has an EF of greater than 75%, impaired rela xation consistent with grade 1 diastolic dysfunction. No regional wall motion abnormalities seen. The patient has no aortic stenosis, no aortic regurgitation. She has no mitral stenosis and trace mitral regurgitation. The patient has moderate abnormal right pressures with RVSP at 54, increased from pre vious echo 11/2015 of 44. No pulmonic stenosis, no regurgitation. HOSPITAL COURSE AND MANAGEMENT: The initial presentation, emergency department evaluation, and hospit al plan is well described in history and physical by Dr. Dahl, see copy of same. SUMMARY: The patient is an 86-year-old female, because she had increasing weakness and confusion, dec reased appetite, she was diagnosed on 11/21/2016 by her PCP with clinical pneumonia, UTI, started on Levaquin. She is usually on 2 liters nasal cannula. She did have urinary frequency. ED saw her and co nfirmed she had pneumonia and was also found to have an elevated BNP at 1500. The patient was continu ed on IV Levaquin initially 750 mg followed by 500. The patient's CHF was treated with Lasix 20 mg IV push twice a day. Her hypertension was controlled with continued lisinopril and metoprolol and the p atient clinically improved so that on the day of discharge, she had a temperature 35.8, 84, 120/79, 1 9, 100% O2 saturation on 2 liters, O2 desaturations at rest and with exertion which showed a need of 2 liters at rest and 4 liters via OxyMask with minimal exertion. She only walked about 35 feet before she said she could not walk any further because of her knees, not her lungs. EYES: EOM within normal limits, PERRL, nonicteric. MOUTH AND THROAT: Moist mucous membranes. No other abnormalities. NECK: No lymphadenopathy, no bruits. CHEST WALL: Nontender. Symmetric. HEART: A 2/6 murmur left sternal border, sinus rhythm. LUNGS: Clear. No wheezes, rales, rhonchi. ABDOMEN: Thick abdominal wall, soft, nontender. EXTREMITIES: 1+ edema. LABORATORY DATA: She had a white count of 6.6, 14 and 44 hemoglobin and hematocrit, platelets were 18 5. Sodium 138, potassium 4.0, chloride 105, CO2 26, BUN 33, creatinine is 1.3, glucose is 97, calcium is 9.3. BNP had decline from 1623 on 11/24/2016 to 1065 on 11/26/2016. The patient is discharged griffin e. DISCHARGE MEDICATIONS: 1. Trazodone 50 mg at bed. 2. Timoptic 0.5% drops, 1 to each eye b.i.d.. 3. Potassium chloride 10 mEq b.i.d.. 4. [place]-3 at 1 pill a day. 5. Multivitamin 1 pill a day. 6. Metoprolol succinate 50 mg at bedtime. 7. Lisinopril 20 mg a day. 8. Furosemide 40 mg a day. 9. Calcium/vitamin D3 600/400. 10. Ascorbic acid 1000 mg a day. 11. Levaquin 500 mg a day for 4 days. The patient is to followup with Dr. Catherine in the next 1-2 weeks. 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 Time spent in collaboration with case management, respiratory therapy, nursing staff is 35 minutes. T he patient was examined on the day of discharge. JOB #: [id number] EXT JOB #:[id number]
== END 2016-11-26 16:09 | disposition home or self-care (01) | DRG 193 ==
LOC: ED 18:34 → MS2 21:43
PROVIDERS: ADMIT Internal Medicine; ATTEND Internal Medicine
DX: R09.02 Hypoxemia (principal); J18.1 Lobar pneumonia, unspecified organism; I50.9 Heart failure, unspecified; J18.9 Pneumonia, unspecified organism; Z85.828 Personal history of other malignant neoplasm of skin; I50.33 Acute on chronic diastolic (congestive) heart failure; I11.0 Hypertensive heart disease with heart failure; H40.9 Unspecified glaucoma; R35.0 Frequency of micturition; R32 Unspecified urinary incontinence; Z77.22 Contact with and (suspected) exposure to environmental tobacco smoke (acute) (chronic); Z79.899 Other long term (current) drug therapy; Z99.81 Dependence on supplemental oxygen; Z87.440 Personal history of urinary (tract) infections
CPT/HCPCS: 36415; 71020; 80048; 80053; 81001; 81003; 83690; 83735; 83880; 85025; 87040; 87086; 87493; 93306; 94640; 94761; 96374; 96375; 99284; 99285

== ENCOUNTER 2017-01-02 11:17 | Outpatient (CLI) | payer MEDICARE, OTHER ==
--- NOTE | 2017-01-02 12:49 | XRAY Report ---
TWO-VIEW CHEST: 01/02/2017 CLINICAL INDICATION: Pneumonia. COMPARISON: 11/23/2016 FINDINGS: Frontal and lateral views of the chest demonstrate an enlarged cardiac silhouette. The santosh ngs demonstrate stable interstitial opacities. Previously noted right base air-space disease appears unchanged. No effusion or pneumothorax is present. IMPRESSION: STABLE INTERSTITIAL DISEASE AND STABLE RIGHT BASILAR OPACITY. NO SIGNIFICANT INTERVAL C KEIRA. JOB #: [id number] EXT JOB #:[id number]
== END 2017-01-02 11:18 | disposition home or self-care (01) ==
LOC: DI 11:17
PROVIDERS: ATTEND Internal Medicine
DX: J18.9 Pneumonia, unspecified organism (principal)
CPT/HCPCS: 71020

== ENCOUNTER 2017-04-23 10:16 | Emergency (ER) | payer MEDICARE, OTHER ==
--- NOTE | 2017-04-23 10:47 | ED Physician Documentation ---
PD HPI ALTERED MENTAL STATUS - Stated complaint Stated Complaint: SOA/WEAKNESS/CONFUSION - Chief complaint Chief Complaint: Resp - History obtained from History obtained from: Patient, Family (daughter) - History of Present Illness Timing - onset: How many days ago (few days of increased weakness, some confusion at times (picking at clothing, staring blankly, etc).) Timing - duration: Days (few) Timing - details: Gradual onset, Waxing and waning Quality / character: Disoriented Associated symptoms: General weakness. No: Fever, Headache, Stiff neck, Dyspnea , Urinary sx, Focal weakness Contributing factors: No: Diabetic, Recent med change, Recent illness, Recent injury Review of Systems Constitutional: denies: Fever, Chills Nose: denies: Rhinorrhea / runny nose, Congestion, Sinus pressure / pain Throat: denies: Sore throat Cardiac: denies: Chest pain / pressure, Palpitations, Pedal edema, Calf pain Respiratory: reports: Dyspnea. denies: Cough, Wheezing : denies: Frequency, Hesitancy Skin: denies: Rash, Lesions, Abrasion (s), Laceration (s) Musculoskeletal: denies: Neck pain, Back pain Neurologic: reports: Generalized weakness. denies: Focal weakness, Numbness PD PAST MEDICAL HISTORY - Past Medical History Cardiovascular: Congestive heart failure, Hypertension Respiratory: None Neuro: None Endocrine/Autoimmune: None GI: None : Incontinence, Frequency HEENT: Glaucoma, Chronic hearing loss, Other Psych: None Musculoskeletal: Osteoarthritis Derm: Other - Past Surgical History Past Surgical History: Yes General: Appendectomy Ortho: Knee replacement /[employer]: Other HEENT: Cataracts Derm: Skin cancer surgery - Present Medications Home Medications: Ambulatory Orders Medication Instructions Recorded Confirmed Multivitamin [Multivitamins] 1 each PO DAILY 09/27/14 04/23/17 Ascorbic Acid [Vitamin C] 1,000 mg PO DAILY 12/18/15 04/23/17 Calcium Carbonate/Vitamin D3 1 each PO DAILY 12/18/15 04/23/17 [Calcium 600-Vit D3 400 Tablet] [place]-3S/Dha/Epa/Fish Oil [Fish 1 each PO DAILY 12/18/15 04/23/17 Oil 1,200 mg Softgel] Timolol 0.5% Ophth Drops [Timoptic 1 drops EACHEYE BID 12/19/15 04/23/17 0.5% Ophth Drops] Furosemide [Lasix] 40 mg PO DAILY #30 tablet 12/20/15 04/23/17 Potassium Chloride [Micro-K] 10 meq PO BIDWM #60 capsule 12/20/15 04/23/17 Levofloxacin [Levaquin] 500 mg PO DAILY #4 tablet 11/26/16 04/23/17 Lactobacillus Acidophilus 1 each PO DAILY 04/23/17 04/23/17 [Probiotic Acidophilus] - Allergies Allergies/Adverse Reactions: Allergies Allergy/AdvReac Type Severity Reaction Status Date / Time No Known Drug Allergies Allergy Verified 04/23/17 10:34 - Living Situation Living Situation: reports: With family Living Arrangement: reports: At home - Social History Does the pt smoke?: No Smoking Status: Never smoker Does the pt drink ETOH?: Yes Does the pt have substance abuse?: No - Immunizations Immunizations are current?: Yes - POLST Patient has POLST: No PD ED PE NORMAL - Vitals Vital signs reviewed: Yes - General General: Alert and oriented X 3, No acute distress, Well developed/nourished - HEENT HEENT: Moist mucous membranes, Pharynx benign - Neck Neck: Supple, no meningeal sign, No adenopathy - Cardiac Cardiac: RRR, No murmur - Respiratory Respiratory: No: Clear bilaterally (some fine crackles at bases both sides. ) - Abdomen Abdomen: Soft, Non tender - Female Female : Deferred - Rectal Rectal: Deferred - Back Back: No CVA TTP - Derm Derm: Normal color, Warm and dry - Extremities Extremities: No deformity, No tenderness to palpate, Normal ROM s pain - Neuro Neuro: Alert and oriented X 3, No motor deficit, Normal speech Eye Opening: Spontaneous Motor: Obeys Commands Verbal: Oriented GCS Score: 15 - Psych Psych: Normal mood, Normal affect Results - Vitals Vitals: Vital Signs - 24 hr 04/23/17 04/23/17 04/23/17 10:28 10:37 10:52 Temperature 35.6 C L Heart Rate 82 Respiratory 23 28 H 26 H Rate Blood Pressure 127/99 H O2 Saturation 100 90 L 93 04/23/17 04/23/17 04/23/17 10:55 11:42 12:06 Temperature Heart Rate 83 96 88 Respiratory 19 20 20 Rate Blood Pressure 127/99 H 130/55 L O2 Saturation 92 96 04/23/17 04/23/17 13:28 13:52 Temperature Heart Rate 87 97 Respiratory 16 20 Rate Blood Pressure 133/78 H 138/92 H O2 Saturation 95 92 Oxygen O2 Source [With Activity] Nasal cannula O2 Source [Without Activity] Room air O2 Source Nasal cannula Oxygen Flow Rate 3 - Labs Labs: Laboratory Tests 04/23/17 04/23/17 04/23/17 10:46 10:46 10:46 WBC 9.0 RBC 4.24 Hgb 14.4 Hct 43.2 MCV 101.9 H MCH 33.9 H MCHC 33.3 RDW 16.1 H Plt Count 217 MPV 7.4 L Neut # 7.8 H Lymph # 0.5 L [place] # 0.5 Eos # 0.1 Baso # 0.1 Absolute Nucleated RBC 0.01 Nucleated RBC % 0.1 Sodium 133 L Potassium 4.2 Chloride 100 L Carbon Dioxide 24 Anion Gap 9.0 BUN 30 H Creatinine 1.5 H Estimated GFR (MDRD) 33 L Glucose 94 Lactic Acid Calcium 9.2 Magnesium Total Bilirubin 0.9 AST 45 H ALT 33 Alkaline Phosphatase 67 Troponin I 0.06 B-Natriuretic Peptide Total Protein 7.3 Albumin 3.7 Globulin 3.6 Albumin/Globulin Ratio 1.0 Lipase 27 Urine Color Urine Clarity Urine pH Ur Specific [place] Urine Protein Urine Glucose (UA) Urine Ketones Urine Occult Blood Urine Nitrite Urine Bilirubin Urine Urobilinogen Ur Leukocyte Esterase Urine RBC Urine WBC Urine WBC Clumps Ur Epithelial Cells Ur Squamous Epith Cells Urine Bacteria Ur Microscopic Review Urine Culture Comments 04/23/17 04/23/17 04/23/17 10:46 11:12 11:23 WBC RBC Hgb Hct MCV MCH MCHC RDW Plt Count MPV Neut # Lymph # [place] # Eos # Baso # Absolute Nucleated RBC Nucleated RBC % Sodium Potassium Chloride Carbon Dioxide Anion Gap BUN Creatinine Estimated GFR (MDRD) Glucose Lactic Acid 1.4 Calcium Magnesium 2.1 Total Bilirubin AST ALT Alkaline Phosphatase Troponin I B-Natriuretic Peptide 2000 H Total Protein Albumin Globulin Albumin/Globulin Ratio Lipase Urine Color Urine Clarity Urine pH Ur Specific [place] Urine Protein Urine Glucose (UA) Urine Ketones Urine Occult Blood Urine Nitrite Urine Bilirubin Urine Urobilinogen Ur Leukocyte Esterase Urine RBC Urine WBC Urine WBC Clumps Ur Epithelial Cells Ur Squamous Epith Cells Urine Bacteria Ur Microscopic Review Urine Culture Comments 04/23/17 11:30 WBC RBC Hgb Hct MCV MCH MCHC RDW Plt Count MPV Neut # Lymph # [place] # Eos # Baso # Absolute Nucleated RBC Nucleated RBC % Sodium Potassium Chloride Carbon Dioxide Anion Gap BUN Creatinine Estimated GFR (MDRD) Glucose Lactic Acid Calcium Magnesium Total Bilirubin AST ALT Alkaline Phosphatase Troponin I B-Natriuretic Peptide Total Protein Albumin Globulin Albumin/Globulin Ratio Lipase Urine Color YELLOW Urine Clarity HAZY Urine pH 6.5 Ur Specific [place] <=1.005 Urine Protein NEGATIVE Urine Glucose (UA) NEGATIVE Urine Ketones NEGATIVE Urine Occult Blood TRACE-LYSE Urine Nitrite NEGATIVE Urine Bilirubin NEGATIVE Urine Urobilinogen 0.2 (NORMAL) Ur Leukocyte Esterase LARGE H Urine RBC 0-5 Urine WBC >25 H Urine WBC Clumps PRESENT Ur Epithelial Cells RARE Renal Tubular Ur Squamous Epith Cells MANY Squamous H Urine Bacteria Many H Ur Microscopic Review INDICATED Urine Culture Comments NOT INDICATED PD MEDICAL DECISION MAKING - ED course Complexity details: reviewed results (has some UTI with abx started last evening , so will have her continue that Rx. Seems some element of CHF. Does not appear septic. ), considered differential (eval for broad array of causes. ), d/w patient, d/w family (daughter) Departure - Departure Disposition: Home, Self Care Clinical Impression: Weakness Dyspnea Qualifiers: Dyspnea type: shortness of breath Qualified Code(s): R06.02 - Shortness of breath CHF (congestive heart failure) Qualifiers: Congestive heart failure type: unspecified Congestive heart failure chronicity : acute on chronic Qualified Code(s): I50.9 - Heart failure, unspecified UTI (urinary tract infection) Qualifiers: Urinary tract infection type: acute cystitis Hematuria presence: without hematuria Qualified Code(s): N30.00 - Acute cystitis without hematuria Condition: Stable Record reviewed to determine appropriate education?: Yes Instructions: ED CHF General, ED Dyspnea Shortness of Breath Follow-Up: Awilda Catherine MD [Primary Care Provider] - Comments: There is signs of some congestive heart failure on x-ray and blood tests and she does have some crackles on lung exam. However does not look to be a significant amount. This likely accounts for her shortness of breath though. I would double her Lasix for the next 2-3 days and also double her potassium the same timeframe. There was a suggestion of bladder infection and so continue the antibiotics that were started yesterday. Continue your home oxygen. Recheck if not improving over the next couple of days and return to the ER sooner if worsening. Discharge Date/Time: 04/23/17 14:33
[2017-04-23 10:55] LABS: BASOPHILS # (AUTO) 0.1 10^3/uL (0.0-0.1); BASOPHILS % (AUTO) 1.2 %; EOSINOPHILS # (AUTO) 0.1 10^3/uL (0.0-0.7); HGB - HEMOGLOBIN 14.4 g/dL (12.0-16.0); LYMPHOCYTES # (AUTO) 0.5 10^3/uL (1.5-3.5); LYMPHOCYTES % (AUTO) 5.7 %; MEAN CORPUSCULAR HEMOGLOBIN 33.9 pg (27.0-31.0); MEAN CORPUSCULAR HGB CONC 33.3 g/dL (32.0-36.0); MEAN CORPUSCULAR VOLUME 101.9 fL (81.0-99.0); MEAN PLATELET VOLUME 7.4 fL (7.9-10.8); MONOCYTES # (AUTO) 0.5 10^3/uL (0.0-1.0); MONOCYTES % (AUTO) 5.5 %; NEUTROPHILS # (AUTO) 7.8 10^3/uL (1.5-6.6); NEUTROPHILS % (AUTO) 86.6 %; PLT - PLATELET COUNT 217 10^3/uL (130-450); RED BLOOD COUNT 4.24 10^6/uL (4.20-5.40); RED CELL DISTRIBUTION WIDTH 16.1 % (12.0-15.0)
[2017-04-23 11:09] LABS: ALBUMIN 3.7 g/dL (3.2-5.5); BILIRUBIN,TOTAL 0.9 mg/dL (0.2-1.0); CALCIUM 9.2 mg/dL (8.5-10.3); CREATININE 1.5 mg/dL (0.4-1.0); TOTAL PROTEIN 7.3 g/dL (6.7-8.2)
[2017-04-23] MEDS ORDERED: ALBUTEROL NEB 2.5 MG/3 ML INH STA (11:11)
--- NOTE | 2017-04-23 11:27 | XRAY Report ---
EXAM: CHEST RADIOGRAPHY EXAM DATE: 04/23/2017 10:58 AM. CLINICAL HISTORY: Shortness of breath. COMPARISON: 02/03/2017 and 01/02/2017. TECHNIQUE: 1 view. FINDINGS: Lungs/Pleura: Faint left basilar opacity, suspect trace pleural effusion. No pneumothorax. Mild diffu se interstitial prominence. Mediastinum: Enlarged cardiac silhouette. Magnification from AP technique and known pectus excavatum may also contribute to prominent cardiac appearance on chest x-ray. Tortuous thoracic aorta with athe rosclerotic calcifications. Other: None. IMPRESSION: 1. Mild congestive heart failure. Trace left pleural effusion. [facility] Referring Provider Line: [phone] SITE ID: [id number]
[2017-04-23 11:38] LABS: BILIRUBIN,URINE NEGATIVE (NEGATIVE); GLUCOSE, URINE (UA) NEGATIVE (NEGATIVE); KETONES,URINE (UA) NEGATIVE (NEGATIVE); LEUKOCYTE ESTERASE, URINE LARGE (NEGATIVE); NITRITE,URINE NEGATIVE (NEGATIVE); OCCULT BLOOD,URINE TRACE-LYSE (NEGATIVE); PH,URINE 6.5 PH (5.0-7.5); PROTEIN,URINE NEGATIVE (NEGATIVE); UROBILINOGEN,URINE 0.2 (NORMAL) E.U./dL (NORMAL)
[2017-04-23 11:40] LABS: CLARITY,URINE HAZY (CLEAR)
[2017-04-23] MEDS ORDERED: FUROSEMIDE 40 MG/4 ML VIAL IVP STA (11:49)
[2017-04-23 11:52] LABS: BACTERIA,URINE Many /HPF (None Seen); RBC,URINE 0-5 /HPF (0-5); SQUAMOUS EPITHELIAL CELL,UR MANY Squamous (<= Few); WBC CLUMPS,URINE PRESENT
[2017-04-23] MEDS ORDERED: POTASSIUM BICARB 25 MEQ TABLET PO STA (12:17)
--- NOTE | 2017-04-23 13:20 | CT Report ---
EXAM: CT HEAD EXAM DATE: 04/23/2017 01:05 PM. CLINICAL HISTORY: Confused at times. Dizziness. COMPARISON: None. TECHNIQUE: Multiaxial CT images were obtained from the foramen magnum to the vertex. Reformats: Coron al. IV contrast: None. In accordance with CT protocol optimization, one or more of the following dose reduction techniques w ere utilized for this exam: automated exposure control, adjustment of mA and/or KV based on patient s ize, or use of iterative reconstructive technique. FINDINGS: Parenchyma: Diffuse parenchymal volume loss with periventricular regions of low attenuation. No evide nce of acute vascular insult or acute parenchymal hemorrhage. No midline shift. No mass effect. Extraaxial Spaces: Extra-axial spaces are prominent. No subdural or epidural collections identified. Ventricles: Ventricles are prominent although symmetric. No hydrocephalus. Sinuses and Orbits: Mild bilateral frontal sinus disease. Remainder of the paranasal sinuses and mast oid air cells are clear. Bones: No evidence of fracture or calvarial defect. Other: Changes are seen from bilateral lens surgery. Otherwise globes and orbits are unremarkable. Va scular calcifications are noted. IMPRESSION: 1. No acute intracranial abnormality is identified. 2. Diffuse parenchymal volume loss and chronic white matter changes. [facility] Referring Provider Line: [phone] SITE ID: [id number]
[2017-04-23 13:53] VITALS: BP 138/92
== END 2017-04-23 14:33 | disposition home or self-care (01) ==
LOC: ED 10:16
DX: I11.0 Hypertensive heart disease with heart failure (principal); I50.9 Heart failure, unspecified; N39.0 Urinary tract infection, site not specified
CPT/HCPCS: 36415; 70450; 71045; 80053; 81001; 83605; 83690; 83735; 83880; 84484; 85025; 93005; 94640; 96374; 99284; A9270; J7613; 81003; 87086

== ENCOUNTER 2017-05-06 22:04 | Outpatient (CLI) | payer MEDICARE, OTHER | END 2017-05-06 22:05 | disposition critical access hospital (66) | LOC: EMS 22:04 | PROVIDERS: ATTEND Surgery | DX: M25.551 Pain in right hip (principal); W19.XXXA Unspecified fall, initial encounter; Y92.003 Bedroom of unspecified non-institutional (private) residence as the place of occurrence of the external cause | CPT/HCPCS: A0425; A0429 ==

== ENCOUNTER 2017-05-06 22:20 | Inpatient (IN) | payer MEDICARE, OTHER ==
--- NOTE | 2017-05-06 22:38 | ED Physician Documentation ---
PD HPI LOWER EXT INJURY - Stated complaint Stated Complaint: GLF - RIGHT HIP PAIN - Chief complaint Chief Complaint: Ext Problem - History obtained from History obtained from: Patient, Family, Other (HPI mostly from patient's daughter (in ED at bedside), as patient has dementia and thus unreliable historian) - History of Present Illness PD HPI LOW EXT INJURY LOCATION: Right, Hip, Other (low back) Type of injury: Fall Where injury occurred: Home Timing - onset: How many minutes ago (45) Pain level now: 8 Improved by: Rest Worsened by: Moving, Palpating Associated symptoms: No: Weakness, Numbness Contributing factors: No: Anticoagulated Recently seen: Not recently seen - Additional information Additional information: patient lives with her daughter (present at bedside). Daughter heard sound c/w patient falling to ground, and thus daughter went to check on patient. Patient was found in bedroom on her floor, c/o right hip and back pain, and unable to stand or be helped to her feet by daughter, thus 911 called. No LOC (daughter says she checked on patient immediately and patient was at, and remains, at baseline level of consciousness, which is awake, alert, conversant, but confused. Patient also occasionally moaning, but daughter says this is not unusual for her) Review of Systems Unable to obtain: Dementia PD PAST MEDICAL HISTORY - Past Medical History Cardiovascular: Congestive heart failure, Hypertension Respiratory: None Neuro: None Endocrine/Autoimmune: None GI: None : Incontinence, Frequency HEENT: Glaucoma, Chronic hearing loss, Other Psych: None Musculoskeletal: Osteoarthritis Derm: Other - Past Surgical History Past Surgical History: Yes General: Appendectomy Ortho: Knee replacement /[employer]: Other HEENT: Cataracts Derm: Skin cancer surgery - Present Medications Home Medications: Ambulatory Orders Medication Instructions Recorded Confirmed Multivitamin [Multivitamins] 1 each PO DAILY 09/27/14 04/23/17 Ascorbic Acid [Vitamin C] 1,000 mg PO DAILY 12/18/15 04/23/17 Calcium Carbonate/Vitamin D3 1 each PO DAILY 12/18/15 04/23/17 [Calcium 600-Vit D3 400 Tablet] [place]-3S/Dha/Epa/Fish Oil [Fish 1 each PO DAILY 12/18/15 04/23/17 Oil 1,200 mg Softgel] Timolol 0.5% Ophth Drops [Timoptic 1 drops EACHEYE BID 12/19/15 04/23/17 0.5% Ophth Drops] Furosemide [Lasix] 40 mg PO DAILY #30 tablet 12/20/15 04/23/17 Potassium Chloride [Micro-K] 10 meq PO BIDWM #60 capsule 12/20/15 04/23/17 Lactobacillus Acidophilus 1 each PO DAILY 04/23/17 04/23/17 [Probiotic Acidophilus] Sulfamethox/Trimeth 800/160 1 tab PO DAILY 05/06/17 05/06/17 [Bactrim Ds] - Allergies Allergies/Adverse Reactions: Allergies Allergy/AdvReac Type Severity Reaction Status Date / Time No Known Drug Allergies Allergy Verified 05/06/17 22:33 - Social History Does the pt smoke?: No Smoking Status: Never smoker Does the pt drink ETOH?: Yes Does the pt have substance abuse?: No - Immunizations Immunizations are current?: Yes - POLST Patient has POLST: No PD ED PE NORMAL - Vitals Vital signs reviewed: Yes - General General: No acute distress (NAD at rest, appears uncomfortable with movement RLE ), Well developed/nourished - HEENT HEENT: PERRL, EOMI, Moist mucous membranes - Neck Neck: No bony TTP - Cardiac Cardiac: RRR, No murmur - Respiratory Respiratory: No respiratory distress, Clear bilaterally - Abdomen Abdomen: Soft, Non tender - Back Back: No CVA TTP, No spinal TTP - Derm Derm: Normal color, Warm and dry - Extremities Extremities: No deformity - Neuro Neuro: Other (awake, alert, oriented to person but neither place nor time) Eye Opening: Spontaneous Motor: Obeys Commands Verbal: Confused GCS Score: 14 PD ED PE EXPANDED - Extremities Extremities: Other (tenderness with palpation of right bony pelvis and with compression of pelvis; 2+ right DP/PT pulses) Results - Vitals Vitals: Vital Signs - 24 hr 05/06/17 22:28 Temperature 36.8 C Heart Rate 81 Respiratory 20 Rate Blood Pressure 109/77 O2 Saturation 93 Oxygen O2 Source [With Activity] Nasal cannula O2 Source [Without Activity] Room air O2 Source Nasal cannula Oxygen Flow Rate 3 - EKG (time done) No standard instances Rate: Rate (enter#) (82) Rhythm: NSR [place]: LAD Intervals: Normal MO QRS: LVH, Poor R wave progression Ischemia: Normal ST segments, Q waves (III, aVF) Compare to prior EKG: Unchanged from prior EKG - Labs Labs: Laboratory Tests 05/07/17 05/07/17 03:15 03:15 WBC 10.2 RBC 4.18 L Hgb 14.3 Hct 42.5 MCV 101.8 H MCH 34.2 H MCHC 33.6 RDW 14.1 Plt Count 219 MPV 8.1 Neut # 8.5 H Lymph # 0.8 L [place] # 0.6 Eos # 0.2 Baso # 0.1 Absolute Nucleated RBC 0.00 Nucleated RBC % 0.0 Sodium 134 L Potassium 4.2 Chloride 101 Carbon Dioxide 24 Anion Gap 9.0 BUN 39 H Creatinine 1.4 H Estimated GFR (MDRD) 36 L Glucose 105 H Calcium 8.9 PD MEDICAL DECISION MAKING - ED course Complexity details: reviewed old records, reviewed results, re-evaluated patient , considered differential, d/w patient, d/w family Departure - Departure Disposition: 66 [facility] DC/Xfer Clinical Impression: Pelvic ring fracture Condition: Stable Discharge Date/Time: 05/07/17 04:35
[2017-05-06] MEDS ORDERED: ACETAMINOPHEN 325 MG TABLET PO STA (22:50)
[2017-05-06] MEDS ORDERED: BACITRACIN OINT TOP STA (22:55)
--- NOTE | 2017-05-07 00:03 | XRAY Report ---
EXAM: SACRUM AND COCCYX RADIOGRAPHY EXAM DATE: 05/06/2017 11:33 PM. HISTORY: Fall. Back pain. COMPARISONS: 04/26/2015. TECHNIQUE: 3 views. FINDINGS: Alignment: Normal. The sacrum and coccyx are normally aligned. Bones: Mildly displaced fractures of the medial right obturator ring. Lateral film suggests an anteri or buckle fracture of the mid sacrum. Joints: Normal. The sacroiliac joints and visualized hips are within normal limits. Soft Tissues: Dense arterial calcification noted. IMPRESSION: Mildly displaced fractures of the medial right obturator ring and likely of the mid sacru m. [facility] Referring Provider Line: [phone] SITE ID: [id number]
--- NOTE | 2017-05-07 00:05 | XRAY Report ---
EXAM: RIGHT HIP AND PELVIS RADIOGRAPHY EXAM DATE: 05/06/2017 11:33 PM. HISTORY: Fall. Pain. COMPARISONS: 08/08/2016. TECHNIQUE: 1 view of the pelvis and 1 view of the hip. FINDINGS: Bones: Mildly displaced fractures of the medial right obturator ring. No other fractures identified. Joints: The bilateral hip, pubis symphysis, and sacroiliac joints are preserved. Soft Tissues: Arterial calcification noted. Pelvic pessary noted. IMPRESSION: Mildly displaced fractures of the right medial obturator ring. [facility] Referring Provider Line: [phone] SITE ID: [id number]
--- NOTE | 2017-05-07 00:11 | XRAY Report ---
EXAM: LUMBOSACRAL SPINE RADIOGRAPHY EXAM DATE: 05/06/2017 11:34 PM. CLINICAL HISTORY: Fall. Back pain. COMPARISONS: 04/20/2015. TECHNIQUE: 3 views. FINDINGS: Alignment: Normal. No spondylolisthesis or scoliosis. Bones: Five bvz-jic-[id number] lumbar vertebral bodies are present. No fractures or bone lesions. Disks: Mild disk space narrowing at L4-L5. Sacroiliac Joints: Unremarkable. Soft Tissues: Dense arterial calcification noted. The visualized bowel gas pattern is normal. IMPRESSION: 1. No acute lumbar spine abnormalities. 2. Mild degenerative disk disease at L4-L5. [facility] Referring Provider Line: [phone] SITE ID: [id number]
[2017-05-07 03:28] LABS: BASOPHILS # (AUTO) 0.1 10^3/uL (0.0-0.1); EOSINOPHILS # (AUTO) 0.2 10^3/uL (0.0-0.7); HGB - HEMOGLOBIN 14.3 g/dL (12.0-16.0); LYMPHOCYTES # (AUTO) 0.8 10^3/uL (1.5-3.5); LYMPHOCYTES % (AUTO) 7.9 %; MEAN CORPUSCULAR HEMOGLOBIN 34.2 pg (27.0-31.0); MEAN CORPUSCULAR HGB CONC 33.6 g/dL (32.0-36.0); MEAN CORPUSCULAR VOLUME 101.8 fL (81.0-99.0); MEAN PLATELET VOLUME 8.1 fL (7.9-10.8); MONOCYTES # (AUTO) 0.6 10^3/uL (0.0-1.0); MONOCYTES % (AUTO) 5.8 %; NEUTROPHILS # (AUTO) 8.5 10^3/uL (1.5-6.6); NEUTROPHILS % (AUTO) 83.3 %; PLT - PLATELET COUNT 219 10^3/uL (130-450); RED BLOOD COUNT 4.18 10^6/uL (4.20-5.40); RED CELL DISTRIBUTION WIDTH 14.1 % (12.0-15.0); WHITE BLOOD COUNT 10.2 x10^3/uL (4.8-10.8)
[2017-05-07 03:33] LABS: CALCIUM 8.9 mg/dL (8.5-10.3); CREATININE 1.4 mg/dL (0.4-1.0)
[2017-05-07] MEDS ORDERED: MORPHINE 2 MG/ML CARPUJECT IVP STA (03:41)
[2017-05-07] MEDS ORDERED: ONDANSETRON 4 MG/2 ML VIAL IVP PRN (03:57)
[2017-05-07 04:16] LABS: BILIRUBIN,URINE NEGATIVE (NEGATIVE); GLUCOSE, URINE (UA) NEGATIVE (NEGATIVE); KETONES,URINE (UA) NEGATIVE (NEGATIVE); LEUKOCYTE ESTERASE, URINE TRACE (NEGATIVE); NITRITE,URINE NEGATIVE (NEGATIVE); OCCULT BLOOD,URINE MODERATE (NEGATIVE); PROTEIN,URINE NEGATIVE (NEGATIVE); UROBILINOGEN,URINE 0.2 (NORMAL) E.U./dL (NORMAL)
[2017-05-07 04:18] LABS: CLARITY,URINE CLEAR (CLEAR)
[2017-05-07 04:21] LABS: BACTERIA,URINE Few /HPF (None Seen); SQUAMOUS EPITHELIAL CELL,UR RARE Squamous (<= Few)
[2017-05-07] MEDS: KETOROLAC 15 MG/ML VIAL IVP PRN (05:53)
[2017-05-07] MEDS: SODIUM CHLORIDE FLUSH 0.9% 10 ML SYRINGE IVP SCH ×3 (05:53→21:39)
[2017-05-07] MEDS: ACETAMINOPHEN 500 MG TABLET PO SCH ×3 (06:00→21:38)
--- NOTE | 2017-05-07 06:05 | HISTORY & PHYSICAL EXAMINATION ---
DATE OF SERVICE: 05/07/2017 Physician: Sayra Boykin MD DATE OF ADMISSION: 05/07/2017 CHIEF COMPLAINT: Fall. SOURCE OF HISTORY: The patient's daughter provided history, the patient had altered mental status and was a poor historian. HISTORY OF PRESENT ILLNESS: The patient is a pleasant 86-year-old white female with past medical history of hypertension, osteoarthritis, glaucoma, chronic kidney disease and congestive heart failure. The patient lives with her daughter and she has history of dementia, which seems to be advancing recently. She also has history of frequent urinary tract infections and had been seen in the ER recently a few times for mechanical falls , weakness and for possible urine infection. Of note, she has been on Bactrim for urine infection or for longer term suppressive therapy. Her recent history is also significant for sacral fracture for which she was evaluated and it was felt she was safe enough at home and was discharged from the ER. Overnight on May 06- the patient was at her home. Family members were nearby. Her daughter reported that they heard a thud and when they checked on the patient the patient was found on the floor. Obviously she fell. She did not suffer any obvious injury , but she had pelvic pain and hip pain; therefore, she was brought to the ER for evaluation. Upon presentation to the ER, the patient was afebrile and hemodynamically stable. Her laboratories showed BUN of 39 and creatinine of 1.4, unremarkable hematology panel. EKG did not show acute ischemic sign. The patient had tenderness at her pelvis and lower extremities; therefore, she underwent multiple skeletal x-rays, including sacrum coccyx, hip and pelvis. On these x-rays multiple fractures were seen including a sacral fracture and mildly displaced medial right obturator ring fracture. At the ER, the patient appeared frail, she was unable to ambulate. In addition, she had altered mental status and her daughter explained that patient has fluctuating mentation. Sometimes she can answer questions appropriately, but most times she is pleasantly confused. Notably urinalysis was ordered as well, but is pending at the time of this dictation. PAST MEDICAL HISTORY: 1. Hypertension. 2. Osteoarthritis, status post left knee arthroplasty. 3. Glaucoma. 4. History of congestive heart failure, echocardiogram showed normal ejection fraction in the past. 5. Chronic kidney disease with creatinine baseline between 1.3 and 1.4. 6. Chronic oxygen dependent respiratory failure, usually the patient uses 2 liters of oxygen per nasal cannula. She had been oxygen dependent at least for the past 6 months. OUTPATIENT MEDICATIONS: Included: 1. Bactrim. 2. Timolol eyedrops. 3. Lasix. 4. Potassium. 5. Fish oil. 6. Multivitamins. 7. Lactobacillus. 8. Vitamin D and calcium supplements and vitamin C. PRIMARY CARE PHYSICIAN: Awilda Catherine MD SOCIAL HISTORY: The patient ambulates using a walker. Most recently she has been undergoing functional decline, both physically, getting weaker and having difficulty even to ambulate with a walker, plus mentally having increasing confusion. She lives at her home with family members including her daughter. FAMILY HISTORY: Positive for hypertension. CODE STATUS: DO NOT RESUSCITATE/DO NOT INTUBATE, confirmed by the daughter. REVIEW OF SYMPTOMS: The patient could not provide. I attempted a 12-point review. The patient denied all complaints. She appeared pleasantly confused. PHYSICAL EXAMINATION: VITAL SIGNS: Temperature 36.8 Celsius, heart rate in the 80s, blood pressure 100/70, respiratory rate 20, oxygen saturation 93% on 2 liters nasal cannula. GENERAL: The patient is a well-developed, frail, elderly female who was not in distress. MUSCULOSKELETAL: Temporal wasting, thin, multiple bruises on the lower extremities and tenderness over the thighs and the pelvis. NEUROLOGIC: The patient was alert, appeared oriented to self and situation, had episodes of confusion, was neurologically nonfocal. PSYCHIATRIC: Cooperative, No agitation. CARDIOVASCULAR: S1, S2. Regular. No pathologic murmur. RESPIRATORY: Clear to auscultation without wheezes or crackles, comfortable on supplemental oxygen. ABDOMEN: Soft, nontender. Bowel tones hypoactive. LYMPH: 1+ pitting edema on bilateral lower extremities, symmetric, with signs of chronic venous stasis. ASSESSMENT AND PLAN: The patient is an 86-year-old female who is getting admitted after she suffered a ground level fall and as a result developed worsening pelvic pain. She was found with sacral and pelvic fractures. As a result she is unable to ambulate. DIAGNOSES include sacral and pelvic fractures, self-care dysfunction, inability to ambulate, and altered mental status/encephalopathy on the basis of underlying dementia. The patient is also high risk to have urinary tract infection, which could precipitate worsening weakness, falls and worsening mentation. Urinalysis is currently pending. ADDITIONAL DIAGNOSES: Include chronic oxygen dependent respiratory failure, which appears at baseline, chronic renal failure, creatinine at baseline, chronic heart failure without exacerbation. In fact volume status appears euvolemic to hypovolemic. PLAN: 1. The patient is getting admitted as inpatient. We will get orthopedic surgery opinion about the conservative management. I do not think the patient would be an operative candidate; however, for conservative management there should be recommendation of weightbearing possibly using braces or other conservative measures. After orthopedic surgeon gave an opinion, the patient should have physical therapy and occupational therapy evaluation. I already ordered social work consult for discharge planning, likely the patient should be discharged to a facility or she should receive home health services. 2. Regarding congestive heart failure, chronic kidney disease and the patient' s volume status, I will hold Lasix as the patient appeared slightly hypovolemic. 2. We will use thrombosis prophylaxis with decreased dose of subcutaneous heparin. 3. For now the patient will be nonweightbearing and we will await opinion about her weightbearing status. 4. Awaiting urinalysis. Will give one dose of empiric coverage with ceftriaxone. 5. Pain control, symptom control. 6. Regarding goals of care, I discussed with the patient's daughter that our goal will be to attend to the patient's fractures and transition her to outpatient care. Family does not wish to have work up for possible other conditions as the patient appears hemodynamically stable. CODE STATUS: DO NOT RESUSCITATE. ATTESTATION: I certify in good floresita that based on a reasonable expectation, this patient will be admitted and will likely stay in the hospital for more than 24 hours; however , will be discharged to home or another facility within 96 hours. Time spent to the care of this patient was 55 minutes. cc: Awilda Catherine TD: 05/07/2017 06:04 ANASTACIO
[2017-05-07] MEDS ORDERED: HEPARIN 5,000 UNIT/ML VIAL SUBQ SCH (09:00)
[2017-05-07] MEDS ORDERED: SODIUM CHLORIDE FLUSH 0.9% 10 ML SYRINGE ONE (09:36)
[2017-05-07] MEDS: cefTRIAXone 1 GM in SODIUM CHLORIDE 0.9% MINIBAG 100 ML IV SCH ×2 (09:37→10:54)
--- NOTE | 2017-05-07 09:37 | CT Report ---
EXAM: CT BONY PELVIS WITHOUT CONTRAST EXAM DATE: 05/07/2017 08:57 AM. CLINICAL HISTORY: POSSIBLE RIGHT HIP FX. COMPARISON: Right hip x-ray 05/06/2017. TECHNIQUE: Thin-section axial images were acquired of the pelvis without contrast. Post-processing: C oronal and sagittal reformats. Other: None. In accordance with CT protocol optimization, one or more of the following dose reduction techniques w ere utilized for this exam: automated exposure control, adjustment of mA and/or KV based on patient s ize, or use of iterative reconstructive technique. FINDINGS: Bones: 1. Nondisplaced fracture inferior right pubic ramus. 2. Comminuted displaced fracture superior right pubic ramus. Posterior 6 mm displacement 2.5 cm corti homer fracture fragment superior pubic ramus anterior 6 mm displacement 1.8 cm superior pubic ramus cor tical fracture (image M1 49 series 3). Superior 1 cm displacement 1.8 cm in length cortical fracture fragment. 3. Negative for proximal right femur fracture. 4. Negative for right acetabulum fracture. 5. Abrupt angulation distal lower sacrum 90 degrees consistent with a remote fracture. Sacroiliac Joints: Degenerative changes left sacroiliac joint. Symphysis Pubis: Unremarkable. Right Hip: Mild degenerative changes right hip. Negative for increased fluid. Left Hip: Mild degenerative changes left hip. Negative for left hip increased fluid. Musculature: Mild asymmetric enlargement right obturator internus muscle consistent with contusion or hemorrhage. Pelvic Cavity: There is a small hematoma 4.0 x 2.4 cm and right lateral pelvic recess. Small hemorrha ge left lateral pelvic recess. Extensive sigmoid diverticulosis. Pelvic floor relaxation with pessary . Possible cyst 1.7 cm a right lateral pelvis adjacent to the right hypogastric artery (image 95 seri es 3). Other: No lymphadenopathy. No free air or free fluid. The other visualized soft tissues are unremarka ble. Severe L5-S1 disk degeneration. Mild left foraminal stenosis from a foraminal 2 mm disk protrusi on osteophyte complex. IMPRESSION: 1. Negative for right hip fracture. 2. Comminuted displaced fracture superior right pubic ramus. 3. Nondisplaced fracture inferior right pubic ramus. 4. Contusion with enlargement and right obturator internus muscle and there is small hematoma right l ateral pelvic recess. [facility] Referring Provider Line: [phone] SITE ID: [id number]
[2017-05-07] MEDS: SODIUM CHLORIDE FLUSH 0.9% 10 ML SYRINGE IVP PRN (09:38)
[2017-05-07] MEDS: POLYETHYLENE GLYCOL 3350 17 GM PACKET PO SCH (09:38)
[2017-05-07] MEDS: TIMOLOL 0.5% OPHTH DROPS EACHEYE SCH ×2 (09:38→21:38)
[2017-05-07] MEDS: CALCIUM CARB (OYSTER SHELL) 500 MG TABLET PO SCH (09:39)
[2017-05-07] MEDS: ASCORBIC ACID CHEW 500 MG TABLET PO SCH (09:39)
[2017-05-07] MEDS: MULTIVITAMIN TABLET PO SCH (09:39)
[2017-05-07] MEDS: LACTOBACILLUS RHAMNOSUS GG CAPSULE PO SCH (09:39)
[2017-05-07] MEDS: CHOLECALCIFEROL 400 UNIT TABLET PO SCH (09:39)
[2017-05-07] MEDS: MORPHINE 2 MG/ML CARPUJECT IVP PRN (12:40)
--- NOTE | 2017-05-07 14:59 | PROVIDER PROGRESS NOTE ---
Subjective - Prog Note Date Prog Note Date: 05/07/17 - Subjective Pt reports feeling: Improved Subjective: pt report she feel better, denies fever, chill, chest pain, shortness of breath. Current Medications - Current Medications Current Medications: Active Medications Acetaminophen (Tylenol) 1,000 mg PO Q8HR [facility] Last Admin: 05/07/17 06:00 Dose: 1,000 mg Ascorbic Acid (Vitamin C) 1,000 mg PO DAILY [facility] Last Admin: 05/07/17 09:39 Dose: 1,000 mg Calcium Carbonate/Glycine ([place]-500) 500 mg PO DAILY [facility] Last Admin: 05/07/17 09:39 Dose: 500 mg Cholecalciferol (Vitamin D3) 400 unit PO DAILY [facility] Last Admin: 05/07/17 09:39 Dose: 400 unit Heparin Sodium (Porcine) () 2,500 unit SUBQ BID [facility] Last Admin: 05/07/17 09:54 Dose: 2,500 unit Ceftriaxone Sodium 1 gm/ (Sodium Chloride) 100 mls @ 200 mls/hr IV DAILY [facility] Last Admin: 05/07/17 10:54 Dose: Not Given Ketorolac Tromethamine (Toradol Inj) 15 mg IVP BID PRN PRN Reason: PAIN Stop: 05/12/17 08:59 Last Admin: 05/07/17 05:53 Dose: 15 mg Lactobacillus Rhamnosus (Culturelle) 1 cap PO DAILY [facility] Last Admin: 05/07/17 09:39 Dose: 1 cap Morphine Sulfate (Morphine (Carpuject)) 2 mg IVP Q2HR PRN PRN Reason: Pain 8 to 10 Last Admin: 05/07/17 12:40 Dose: 2 mg Multivitamins (Theragran) [facility] [place] Last Admin: 05/07/17 09:39 Dose: 1 tab Ondansetron HCl (Zofran Inj) 4 mg IVP Q6HR PRN PRN Reason: Nausea / Vomiting Polyethylene Glycol (Miralax) 17 gm PO DAILY [facility] Last Admin: 05/07/17 09:38 Dose: 17 gm Sodium Chloride (Normal Saline Flush 0.9%) 10 ml IVP PRN PRN PRN Reason: NEEDED PER PROVIDER ORDERS Last Admin: 05/07/17 09:38 Dose: 10 ml Sodium Chloride (Normal Saline Flush 0.9%) 10 ml IVP Q8HR [facility] Last Admin: 05/07/17 05:53 Dose: 10 ml Timolol Maleate (Timoptic 0.5% Ophth Drops) 1 drops EACHEYE BID [facility] Last Admin: 05/07/17 09:38 Dose: 1 drops Lactobacillus Acidophilus [Probiotic Acidophilus] 1 tab PO DAILY 04/23/17 Aspirin 81 mg PO DAILY 05/07/17 Carboxymethylcellulose Sodium [Refresh Tears] 1 drops EACHEYE QID 05/07/17 Furosemide [Furosemide] 40 mg PO DAILY 05/07/17 Potassium Chloride 10 meq PO DAILY 05/07/17 Timolol 0.5% Ophth Drops [Timoptic 0.5% Ophth Drops] 1 drops EACHEYE BID Objective - Vital Signs/Intake & Output Reviewed Vital Signs: Yes Vital Signs: Vital Signs x48h Temp Pulse Resp BP Pulse Ox 05/07/17 09:24 36.3 C L 92 32 H 103/69 94 Intake & Output: Intake & Output 05/04/17 05/05/17 05/06/17 05/07/17 23:59 23:59 23:59 23:59 Intake Total 100 Balance 100 - Objective General Appearance: positive: No acute distress, Alert. negative: Lethargic Eyes Bilateral: positive: Normal inspection, PERRL, No lid inflammation, Conjunctivae nml ENT: positive: ENT inspection nml, Pharynx nml, No signs of dehydration. negative: Purulent nasal drainage, Pharyngeal erythema, Oral lesions Neck: positive: Nml inspection, Thyroid nml, No JVD, Trachea midline. negative : Thyromegaly, Lymphadenopathy (R), Lymphadenopathy (L), Stiff neck, Carotid bruit, Swelling/bruising, Tracheal deviation Respiratory: positive: Chest non-tender, No respiratory distress, Breath sounds nml. negative: Wheezes, Rales, Rhonchi Cardiovascular: positive: Regular rate & rhythm, No murmur, No gallop. negative : Irregularly irregular, Extrasystoles, Tachycardia, Bradycardia, Systolic murmur, Diastolic murmur Peripheral Pulses: 2+ Radial (R), 2+ Radial (L), 2+ Dorsalis pedis (R), 2+ Dorsalis pedis (L) Abdomen: positive: Non-tender, No organomegaly, Nml bowel sounds, No distention. negative: Tenderness, Guarding, Rebound Back: positive: Nml inspection. negative: CVA tenderness (R), CVA tenderness (L ) Skin: positive: Color nml, No rash, Warm, Dry. negative: Cyanosis, Diaphoresis , Pallor Extremities: positive: Non-tender, Full ROM, Nml appearance. negative: Calf tenderness, Joint swelling, Traci's sign/cords Neurologic/Psychiatric: positive: Sensation nml, Mood/affect nml. negative: Sensory loss, Facial droop, Slurred/abnml speech, Depressed mood/affect - Lab Results Fish Bones: 05/07/17 03:15 05/07/17 03:15 Other Labs: Lab Results x24hrs 05/07/17 Range/Units 04:05 Urine Color YELLOW Urine Clarity CLEAR (CLEAR) Urine pH 6.0 (5.0-7.5) PH Ur Specific [place] >=1.030 H (1.002-1.030) Urine Protein NEGATIVE (NEGATIVE) mg/dL Urine Glucose (UA) NEGATIVE (NEGATIVE) mg/dL Urine Ketones NEGATIVE (NEGATIVE) mg/dL Urine Occult Blood MODERATE H (NEGATIVE) Urine Nitrite NEGATIVE (NEGATIVE) Urine Bilirubin NEGATIVE (NEGATIVE) Urine Urobilinogen 0.2 (NORMAL) (NORMAL) E.U./dL Ur Leukocyte Esterase TRACE H (NEGATIVE) Urine RBC 6-10 H (0-5) /HPF Urine WBC 4-5 (0-5) /HPF Ur Squamous Epith Cells RARE Squamous (<= Few) Urine Bacteria Few (None Seen) /HPF Ur Microscopic Review INDICATED Assessment/Plan - Problem List (1) Fall Impression: pt had fall twice at home. Xray reveals fracture at pelvis. consult with Orthopedics, follow up pain control PT/OT evaluation and treatment, per orthopedics recommend (2) UTI (urinary tract infection) Impression: pt with hx of frequent UTI. UA reveals trace of ULE continue Rocephin (3) HTN (hypertension) Impression: stable, continue vital monitor (4) Hx of chronic congestive heart failure Impression: stable, continue home meds Lasix vital tele monitor (5) CKD (chronic kidney disease) Impression: stable, hydration, avoid nephrotoxic (6) Dependence on supplemental oxygen Impression: continue support, O2 supplement PRN
--- NOTE | 2017-05-07 19:39 | CONSULTATION NOTE ---
Referring Provider Name of Referring Provider:: Fan Consult Date: 05/07/17 Chief Complaint - Chief Complaint Chief Complaint: Pain in right groin after fall at home (twice) History of Present Illness - Admitted From Admitted From:: Fall at home - History Obtained From Records Reviewed: Fan History obtained from: patient Exam Limitations: Unable to stand - History of Present Illness HPI Comment/Other: Fell twice with severe groin pain after second fall. Brought to ER where right pubic fractures noted. History - Past Medical History Cardiovascular: reports: Congestive heart failure, Hypertension Respiratory: reports: None Neuro: reports: None Endocrine/Autoimmune: reports: None GI: reports: None : reports: Incontinence, Frequency HEENT: reports: Glaucoma, Chronic hearing loss, Other Psych: reports: None Musculoskeletal: reports: Osteoarthritis Derm: reports: Other MRSA Hx?: No - Past Surgical History General: reports: Appendectomy Ortho: reports: Knee replacement /ASSAYER: reports: Other HEENT: reports: Cataracts Derm: reports: Skin cancer surgery - Substance History Use: Uses substance without health or social issues: NONE, Alcohol (a glass of wine with dinner) - POLST Patient has POLST: No Meds/Allgy - Home Medications Home Medications: Ambulatory Orders Medication Instructions Recorded Confirmed Lactobacillus Acidophilus 1 tab PO DAILY 04/23/17 05/07/17 [Probiotic Acidophilus] Aspirin 81 mg PO DAILY 05/07/17 05/07/17 Carboxymethylcellulose Sodium 1 drops EACHEYE QID 05/07/17 05/07/17 [Refresh Tears] Furosemide [Furosemide] 40 mg PO DAILY 05/07/17 05/07/17 Potassium Chloride 10 meq PO DAILY 05/07/17 05/07/17 Timolol 0.5% Ophth Drops [Timoptic 1 drops EACHEYE BID 05/07/17 05/07/17 0.5% Ophth Drops] - Allergies Allergies/Adverse Reactions: Allergies Allergy/AdvReac Type Severity Reaction Status Date / Time No Known Drug Allergies Allergy Verified 05/06/17 22:33 Exam - Vital Signs Vital Signs: Vital Signs x48h Temp Pulse Resp BP Pulse Ox 05/07/17 15:42 36.5 C 70 24 104/57 L 94 - Physical Exam Comments/Other: Patient lying in bed, not able to move well. No sign of trauma to upper extremities. Mild pain with IR/ER right femur. Pain with passive flexionof hip. NV intact Pelvic xrays show both pubic rami fractured on the right CT scan ordered by me shows that there is no femoral neck fracture Conclusion/Plan - Diagnosis Diagnosis: RIght pubic rami fractures. No femoral neck fracture - Lab Results Fish Bones: 05/07/17 03:15 05/07/17 03:15 - Other Other Results/Comments: Plan: Mobilize with P.T.,
[2017-05-08 04:46] LABS: BASOPHILS % (AUTO) 0.7 %; EOSINOPHILS # (AUTO) 0.3 10^3/uL (0.0-0.7); EOSINOPHILS % (AUTO) 4.6 %; HGB - HEMOGLOBIN 13.4 g/dL (12.0-16.0); LYMPHOCYTES # (AUTO) 0.7 10^3/uL (1.5-3.5); LYMPHOCYTES % (AUTO) 11.6 %; MEAN CORPUSCULAR HEMOGLOBIN 33.2 pg (27.0-31.0); MEAN CORPUSCULAR HGB CONC 32.5 g/dL (32.0-36.0); MEAN CORPUSCULAR VOLUME 102.2 fL (81.0-99.0); MEAN PLATELET VOLUME 8.3 fL (7.9-10.8); MONOCYTES # (AUTO) 0.6 10^3/uL (0.0-1.0); MONOCYTES % (AUTO) 9.5 %; NEUTROPHILS # (AUTO) 4.4 10^3/uL (1.5-6.6); NEUTROPHILS % (AUTO) 73.6 %; PLT - PLATELET COUNT 187 10^3/uL (130-450); RED BLOOD COUNT 4.03 10^6/uL (4.20-5.40); RED CELL DISTRIBUTION WIDTH 14.2 % (12.0-15.0); WHITE BLOOD COUNT 5.9 x10^3/uL (4.8-10.8)
[2017-05-08 05:04] LABS: ALBUMIN 3.1 g/dL (3.2-5.5); BILIRUBIN,TOTAL 0.5 mg/dL (0.2-1.0); CALCIUM 9.4 mg/dL (8.5-10.3); CREATININE 1.7 mg/dL (0.4-1.0); MAGNESIUM 2.3 mg/dL (1.7-2.8); TOTAL PROTEIN 6.3 g/dL (6.7-8.2)
[2017-05-08] MEDS: ACETAMINOPHEN 500 MG TABLET PO SCH ×3 (05:44→21:42)
[2017-05-08] MEDS: SODIUM CHLORIDE FLUSH 0.9% 10 ML SYRINGE IVP SCH ×3 (05:45→21:42)
[2017-05-08] MEDS: POLYETHYLENE GLYCOL 3350 17 GM PACKET PO SCH (09:08)
[2017-05-08] MEDS: cefTRIAXone 1 GM in SODIUM CHLORIDE 0.9% MINIBAG 100 ML IV SCH (09:09)
[2017-05-08] MEDS: LACTOBACILLUS RHAMNOSUS GG CAPSULE PO SCH (09:09)
[2017-05-08] MEDS: CHOLECALCIFEROL 400 UNIT TABLET PO SCH (09:09)
[2017-05-08] MEDS: MULTIVITAMIN TABLET PO SCH ×2 (09:09→11:29)
[2017-05-08] MEDS: CALCIUM CARB (OYSTER SHELL) 500 MG TABLET PO SCH ×2 (09:09→11:30)
[2017-05-08] MEDS: ASCORBIC ACID CHEW 500 MG TABLET PO SCH ×2 (09:09→11:30)
[2017-05-08] MEDS: TIMOLOL 0.5% OPHTH DROPS EACHEYE SCH ×2 (09:10→21:42)
[2017-05-08] MEDS: SODIUM CHLORIDE 0.9% 1,000 ML IV SCH ×2 (09:10→23:55)
[2017-05-08] MEDS: KETOROLAC 15 MG/ML VIAL IVP PRN (09:17)
--- NOTE | 2017-05-08 16:36 | PROVIDER PROGRESS NOTE ---
Subjective - Prog Note Date Prog Note Date: 05/08/17 - Subjective Pt reports feeling: Improved Subjective: pt report her pain is very good controlled when she is no movement, but pain when she move. no fever, chill Current Medications - Current Medications Current Medications: Active Medications Acetaminophen (Tylenol) 1,000 mg PO Q8HR [facility] Last Admin: 05/09/17 14:58 Dose: 1,000 mg Ascorbic Acid (Vitamin C) 1,000 mg PO DAILY [facility] Last Admin: 05/09/17 10:06 Dose: 1,000 mg Azithromycin (Zithromax) 250 mg PO DAILY [facility] Calcium Carbonate/Glycine (Oysco-500) 500 mg PO DAILY [facility] Last Admin: 05/09/17 10:06 Dose: 500 mg Cholecalciferol (Vitamin D3) 400 unit PO DAILY [facility] Last Admin: 05/09/17 10:06 Dose: 400 unit Ceftriaxone Sodium 1 gm/ (Sodium Chloride) 100 mls @ 200 mls/hr IV DAILY [facility] Last Admin: 05/09/17 10:07 Dose: 200 mls/hr Sodium Chloride (Normal Saline 0.9%) 1,000 mls @ 83.333 mls/hr IV .Q12H [facility] Last Admin: 05/09/17 10:00 Dose: 83.333 mls/hr Ketorolac Tromethamine (Toradol Inj) 15 mg IVP BID PRN PRN Reason: PAIN Stop: 05/12/17 08:59 Last Admin: 05/09/17 00:27 Dose: 15 mg Lactobacillus Rhamnosus (Culturelle) 1 cap PO DAILY [facility] Last Admin: 05/09/17 10:05 Dose: 1 cap Morphine Sulfate (Morphine (Carpuject)) 2 mg IVP Q2HR PRN PRN Reason: Pain 8 to 10 Last Admin: 05/09/17 14:55 Dose: 2 mg Multivitamins (Theragran) 1 tab PO DAILYWM [facility] Last Admin: 05/09/17 10:06 Dose: 1 tab Ondansetron HCl (Zofran Inj) 4 mg IVP Q6HR PRN PRN Reason: Nausea / Vomiting Polyethylene Glycol (Miralax) 17 gm PO DAILY [facility] Last Admin: 05/09/17 10:06 Dose: 17 gm Sodium Chloride (Normal Saline Flush 0.9%) 10 ml IVP PRN PRN PRN Reason: NEEDED PER PROVIDER ORDERS Last Admin: 05/07/17 09:38 Dose: 10 ml Sodium Chloride (Normal Saline Flush 0.9%) 10 ml IVP Q8HR [facility] Last Admin: 05/09/17 14:10 Dose: Not Given Timolol Maleate (Timoptic 0.5% Ophth Drops) 1 drops EACHEYE BID [facility] Last Admin: 05/09/17 10:27 Dose: 1 drops Lactobacillus Acidophilus [Probiotic Acidophilus] 1 tab PO DAILY 04/23/17 Aspirin 81 mg PO DAILY 05/07/17 Carboxymethylcellulose Sodium [Refresh Tears] 1 drops EACHEYE QID 05/07/17 Furosemide [Furosemide] 40 mg PO DAILY 05/07/17 Potassium Chloride 10 meq PO DAILY 05/07/17 Timolol 0.5% Ophth Drops [Timoptic 0.5% Ophth Drops] 1 drops EACHEYE BID Objective - Vital Signs/Intake & Output Vital Signs: Vital Signs x48h Temp Pulse Resp BP Pulse Ox 05/08/17 15:38 36.7 C 77 24 135/79 H 97 Intake & Output: Intake & Output 05/05/17 05/06/17 05/07/17 05/08/17 23:59 23:59 23:59 23:59 Intake Total 300 150 Output Total 300 Balance 300 -150 - Objective General Appearance: positive: No acute distress, Alert. negative: Lethargic Eyes Bilateral: positive: Normal inspection, PERRL, No lid inflammation, Conjunctivae nml ENT: positive: ENT inspection nml, Pharynx nml, No signs of dehydration. negative: Purulent nasal drainage, Pharyngeal erythema, Oral lesions Neck: positive: Nml inspection, Thyroid nml, No JVD, Trachea midline. negative : Thyromegaly, Lymphadenopathy (R), Lymphadenopathy (L), Stiff neck, Carotid bruit, Swelling/bruising, Tracheal deviation Respiratory: positive: Chest non-tender, No respiratory distress. negative: Wheezes, Rales, Rhonchi Cardiovascular: positive: Regular rate & rhythm, No murmur, No gallop. negative : Irregularly irregular, Extrasystoles, Tachycardia, Bradycardia, JVD present, Systolic murmur, Diastolic murmur Peripheral Pulses: 2+ Radial (R), 2+ Radial (L), 2+ Dorsalis pedis (R), 2+ Dorsalis pedis (L) Abdomen: positive: Non-tender, No organomegaly, Nml bowel sounds, No distention. negative: Tenderness, Guarding, Rebound Back: positive: Nml inspection. negative: CVA tenderness (R), CVA tenderness (L ) Skin: positive: Color nml, No rash, Warm, Dry. negative: Cyanosis, Diaphoresis , Pallor Extremities: positive: Non-tender, Nml appearance. negative: Calf tenderness, Joint swelling, Traci's sign/cords Neurologic/Psychiatric: positive: Sensation nml, Mood/affect nml. negative: Sensory loss, Facial droop, Slurred/abnml speech, Depressed mood/affect - Lab Results Fish Bones: 05/09/17 04:15 05/09/17 04:15 Other Labs: Lab Results x24hrs 05/08/17 05/08/17 Range/Units 04:27 04:27 WBC 5.9 (4.8-10.8) x10^3/uL RBC 4.03 L (4.20-5.40) 10^6/uL Hgb 13.4 (12.0-16.0) g/dL Hct 41.2 (37.0-47.0) % MCV 102.2 H (81.0-99.0) fL MCH 33.2 H (27.0-31.0) pg MCHC 32.5 (32.0-36.0) g/dL RDW 14.2 (12.0-15.0) % Plt Count 187 (130-450) 10^3/uL MPV 8.3 (7.9-10.8) fL Neut # 4.4 (1.5-6.6) 10^3/uL Lymph # 0.7 L (1.5-3.5) 10^3/uL [place] # 0.6 (0.0-1.0) 10^3/uL Eos # 0.3 (0.0-0.7) 10^3/uL Baso # 0.0 (0.0-0.1) 10^3/uL Absolute Nucleated RBC 0.00 x10^3/uL Nucleated RBC % 0.0 /100WBC Sodium 136 (135-145) mmol/L Potassium 4.6 (3.5-5.0) mmol/L Chloride 101 (101-111) mmol/L Carbon Dioxide 26 (21-32) mmol/L Anion Gap 9.0 (6-13) BUN 42 H (6-20) mg/dL Creatinine 1.7 H (0.4-1.0) mg/dL Estimated GFR (MDRD) 28 L (>89) Glucose 97 (70-100) mg/dL Calcium 9.4 (8.5-10.3) mg/dL Magnesium 2.3 (1.7-2.8) mg/dL Total Bilirubin 0.5 (0.2-1.0) mg/dL AST 32 (10-42) IU/L ALT 18 (10-60) IU/L Alkaline Phosphatase 52 (42-121) IU/L Total Protein 6.3 L (6.7-8.2) g/dL Albumin 3.1 L (3.2-5.5) g/dL Globulin 3.2 (2.1-4.2) g/dL Albumin/Globulin Ratio 1.0 (1.0-2.2) Assessment/Plan - Problem List (1) Fall Impression: (1) Fall Impression: pt is recommended to SNF by PT/OT, seek for replacement pain control continue PT/OT pt had fall twice at home. Xray reveals fracture at pelvis. consult with Orthopedics, follow up pain control PT/OT evaluation and treatment, per orthopedics recommend, follow up (2) UTI (urinary tract infection) Impression: pt with hx of frequent UTI. UA reveals trace of ULE continue Rocephin (3) HTN (hypertension) Impression: stable, continue vital monitor (4) Hx of chronic congestive heart failure Impression: stable, continue home meds Lasix vital tele monitor (5) CKD (chronic kidney disease) Impression: stable, hydration, avoid nephrotoxic (6) Dependence on supplemental oxygen Impression: continue support, O2 supplement PRN (7) pelvis fracture consult with orthopedics, follow up no operation per orthopedics pain control PT/OT plan to be D/C SNF
[2017-05-09] MEDS: KETOROLAC 15 MG/ML VIAL IVP PRN ×2 (00:27→17:40)
[2017-05-09 04:46] LABS: BASOPHILS # (AUTO) 0.1 10^3/uL (0.0-0.1); BASOPHILS % (AUTO) 0.9 %; EOSINOPHILS # (AUTO) 0.2 10^3/uL (0.0-0.7); EOSINOPHILS % (AUTO) 3.7 %; HGB - HEMOGLOBIN 13.1 g/dL (12.0-16.0); LYMPHOCYTES # (AUTO) 0.7 10^3/uL (1.5-3.5); LYMPHOCYTES % (AUTO) 10.4 %; MEAN CORPUSCULAR HEMOGLOBIN 33.3 pg (27.0-31.0); MEAN CORPUSCULAR HGB CONC 32.4 g/dL (32.0-36.0); MEAN CORPUSCULAR VOLUME 102.7 fL (81.0-99.0); MEAN PLATELET VOLUME 8.6 fL (7.9-10.8); MONOCYTES # (AUTO) 0.5 10^3/uL (0.0-1.0); MONOCYTES % (AUTO) 7.5 %; NEUTROPHILS # (AUTO) 5.2 10^3/uL (1.5-6.6); NEUTROPHILS % (AUTO) 77.5 %; PLT - PLATELET COUNT 186 10^3/uL (130-450); RED BLOOD COUNT 3.93 10^6/uL (4.20-5.40); RED CELL DISTRIBUTION WIDTH 14.3 % (12.0-15.0); WHITE BLOOD COUNT 6.8 x10^3/uL (4.8-10.8)
[2017-05-09 05:13] LABS: ALBUMIN 2.8 g/dL (3.2-5.5); BILIRUBIN,TOTAL 0.6 mg/dL (0.2-1.0); CALCIUM 8.6 mg/dL (8.5-10.3); CREATININE 1.3 mg/dL (0.4-1.0); TOTAL PROTEIN 5.7 g/dL (6.7-8.2)
[2017-05-09] MEDS: ACETAMINOPHEN 500 MG TABLET PO SCH ×3 (07:57→22:43)
[2017-05-09] MEDS: SODIUM CHLORIDE 0.9% 1,000 ML IV SCH (10:00)
--- NOTE | 2017-05-09 10:02 | XRAY Report ---
FRONTAL CHEST: 05/09/2017 CLINICAL INDICATION: Shortness of breath. COMPARISON: 04/23/2017. FINDINGS: Frontal view of the chest demonstrates an enlarged cardiac silhouette. Bibasilar patchy infiltrates are now present. No effusion or pneumothorax is seen. IMPRESSION: INTERVAL DEVELOPMENT OF PATCHY BIBASILAR INFILTRATES. STABLE CARDIOMEGALY. TD: 05/09/2017 10:01
[2017-05-09] MEDS: LACTOBACILLUS RHAMNOSUS GG CAPSULE PO SCH (10:05)
[2017-05-09] MEDS: CALCIUM CARB (OYSTER SHELL) 500 MG TABLET PO SCH (10:06)
[2017-05-09] MEDS: POLYETHYLENE GLYCOL 3350 17 GM PACKET PO SCH (10:06)
[2017-05-09] MEDS: ASCORBIC ACID CHEW 500 MG TABLET PO SCH (10:06)
[2017-05-09] MEDS: CHOLECALCIFEROL 400 UNIT TABLET PO SCH (10:06)
[2017-05-09] MEDS: MULTIVITAMIN TABLET PO SCH (10:06)
[2017-05-09] MEDS: MORPHINE 2 MG/ML CARPUJECT IVP PRN ×4 (10:07→20:06)
[2017-05-09] MEDS: SODIUM CHLORIDE FLUSH 0.9% 10 ML SYRINGE IVP SCH ×3 (10:07→20:07)
[2017-05-09] MEDS: cefTRIAXone 1 GM in SODIUM CHLORIDE 0.9% MINIBAG 100 ML IV SCH (10:07)
[2017-05-09] MEDS: TIMOLOL 0.5% OPHTH DROPS EACHEYE SCH ×2 (10:27→20:09)
[2017-05-09] MEDS ORDERED: SODIUM CHLORIDE 0.9% 1,000 ML IV SCH (15:52)
--- NOTE | 2017-05-09 16:04 | PROVIDER PROGRESS NOTE ---
Subjective - Prog Note Date Prog Note Date: 05/09/17 - Subjective Pt reports feeling: Improved Subjective: pt feel better, pain is good control, but increase of shortness of breath. No chest pain, fever, chill. Current Medications - Current Medications Current Medications: Active Medications Acetaminophen (Tylenol) 1,000 mg PO Q8HR [facility] Last Admin: 05/09/17 14:58 Dose: 1,000 mg Ascorbic Acid (Vitamin C) 1,000 mg PO DAILY [facility] Last Admin: 05/09/17 10:06 Dose: 1,000 mg Aspirin ([place] Aspirin) 81 mg PO DAILY [facility] Azithromycin (Zithromax) 250 mg PO DAILY [facility] Calcium Carbonate/Glycine (Oysco-500) 500 mg PO DAILY [facility] Last Admin: 05/09/17 10:06 Dose: 500 mg Cholecalciferol (Vitamin D3) 400 unit PO DAILY [facility] Last Admin: 05/09/17 10:06 Dose: 400 unit Furosemide (Lasix) 40 mg PO DAILY [facility] Ceftriaxone Sodium 1 gm/ (Sodium Chloride) 100 mls @ 200 mls/hr IV DAILY [facility] Last Infusion: 05/09/17 11:00 Dose: Infused Ketorolac Tromethamine (Toradol Inj) 15 mg IVP BID PRN PRN Reason: PAIN Stop: 05/12/17 08:59 Last Admin: 05/09/17 00:27 Dose: 15 mg Lactobacillus Rhamnosus (Culturelle) 1 cap PO DAILY [facility] Last Admin: 05/09/17 10:05 Dose: 1 cap Morphine Sulfate (Morphine (Carpuject)) 2 mg IVP Q2HR PRN PRN Reason: Pain 8 to 10 Last Admin: 05/09/17 14:55 Dose: 2 mg Multivitamins (Theragran) 1 tab PO DAILYWM [facility] Last Admin: 05/09/17 10:06 Dose: 1 tab Non-Formulary Medication (Carboxymethylcellulose Sodium [Refresh Tears]) 1 drops EACHEYE QID [facility] Ondansetron HCl (Zofran Inj) 4 mg IVP Q6HR PRN PRN Reason: Nausea / Vomiting Polyethylene Glycol (Miralax) 17 gm PO DAILY [facility] Last Admin: 05/09/17 10:06 Dose: 17 gm Potassium Chloride (Micro-K) 10 meq PO DAILY [facility] Sodium Chloride (Normal Saline Flush 0.9%) 10 ml IVP PRN PRN PRN Reason: NEEDED PER PROVIDER ORDERS Last Admin: 05/07/17 09:38 Dose: 10 ml Sodium Chloride (Normal Saline Flush 0.9%) 10 ml IVP Q8HR [facility] Last Admin: 05/09/17 14:10 Dose: Not Given Timolol Maleate (Timoptic 0.5% Ophth Drops) 1 drops EACHEYE BID [facility] Last Admin: 05/09/17 10:27 Dose: 1 drops Timolol Maleate (Timoptic 0.5% Ophth Drops) 1 drops EACHEYE BID [facility] Lactobacillus Acidophilus [Probiotic Acidophilus] 1 tab PO DAILY 04/23/17 Aspirin 81 mg PO DAILY 05/07/17 Carboxymethylcellulose Sodium [Refresh Tears] 1 drops EACHEYE QID 05/07/17 Furosemide [Furosemide] 40 mg PO DAILY 05/07/17 Potassium Chloride 10 meq PO DAILY 05/07/17 Timolol 0.5% Ophth Drops [Timoptic 0.5% Ophth Drops] 1 drops EACHEYE BID Objective - Vital Signs/Intake & Output Vital Signs: Vital Signs x48h Temp Pulse Resp BP Pulse Ox 05/09/17 11:46 36.5 C 64 18 125/71 91 L Intake & Output: Intake & Output 05/06/17 05/07/17 05/08/17 05/09/17 23:59 23:59 23:59 23:59 Intake Total 300 1150 1320.274 Output Total 350 Balance 276 327 4760.274 - Objective General Appearance: positive: No acute distress, Alert. negative: Lethargic Eyes Bilateral: positive: Normal inspection, PERRL, Conjunctivae nml ENT: positive: ENT inspection nml, Pharynx nml, No signs of dehydration. negative: Purulent nasal drainage, Pharyngeal erythema, Oral lesions Neck: positive: Nml inspection, Thyroid nml, No JVD, Trachea midline. negative : Thyromegaly, Lymphadenopathy (R), Lymphadenopathy (L), Stiff neck, Carotid bruit, Swelling/bruising, Tracheal deviation Respiratory: positive: Chest non-tender, No respiratory distress. negative: Wheezes, Rales, Rhonchi Cardiovascular: positive: Regular rate & rhythm, No murmur, No gallop. negative : Irregularly irregular, Extrasystoles, Tachycardia, Bradycardia, JVD present, Systolic murmur, Diastolic murmur Peripheral Pulses: 2+ Radial (R), 2+ Radial (L), 2+ Dorsalis pedis (R), 2+ Dorsalis pedis (L) Abdomen: positive: Non-tender, No organomegaly, Nml bowel sounds, No distention. negative: Tenderness, Guarding, Rebound Back: positive: Nml inspection. negative: CVA tenderness (R), CVA tenderness (L ) Skin: positive: Color nml, No rash, Warm, Dry. negative: Cyanosis, Diaphoresis , Pallor Extremities: positive: Non-tender, Full ROM, Nml appearance. negative: Calf tenderness, Joint swelling, Traci's sign/cords Neurologic/Psychiatric: positive: Sensation nml, Mood/affect nml. negative: Sensory loss, Facial droop, Slurred/abnml speech, Depressed mood/affect - Lab Results Fish Bones: 05/09/17 04:15 05/09/17 04:15 Other Labs: Lab Results x24hrs 05/09/17 05/09/17 Range/Units 04:15 04:15 WBC 6.8 (4.8-10.8) x10^3/uL RBC 3.93 L (4.20-5.40) 10^6/uL Hgb 13.1 (12.0-16.0) g/dL Hct 40.3 (37.0-47.0) % MCV 102.7 H (81.0-99.0) fL MCH 33.3 H (27.0-31.0) pg MCHC 32.4 (32.0-36.0) g/dL RDW 14.3 (12.0-15.0) % Plt Count 186 (130-450) 10^3/uL MPV 8.6 (7.9-10.8) fL Neut # 5.2 (1.5-6.6) 10^3/uL Lymph # 0.7 L (1.5-3.5) 10^3/uL [place] # 0.5 (0.0-1.0) 10^3/uL Eos # 0.2 (0.0-0.7) 10^3/uL Baso # 0.1 (0.0-0.1) 10^3/uL Absolute Nucleated RBC 0.01 x10^3/uL Nucleated RBC % 0.1 /100WBC Sodium 140 (135-145) mmol/L Potassium 4.3 (3.5-5.0) mmol/L Chloride 106 (101-111) mmol/L Carbon Dioxide 23 (21-32) mmol/L Anion Gap 11.0 (6-13) BUN 39 H (6-20) mg/dL Creatinine 1.3 H (0.4-1.0) mg/dL Estimated GFR (MDRD) 39 L (>89) Glucose 97 (70-100) mg/dL Calcium 8.6 (8.5-10.3) mg/dL Total Bilirubin 0.6 (0.2-1.0) mg/dL AST 33 (10-42) IU/L ALT 16 (10-60) IU/L Alkaline Phosphatase 56 (42-121) IU/L Total Protein 5.7 L (6.7-8.2) g/dL Albumin 2.8 L (3.2-5.5) g/dL Globulin 2.9 (2.1-4.2) g/dL Albumin/Globulin Ratio 1.0 (1.0-2.2) Assessment/Plan - Problem List (1) Fall Impression: (1) Fall Impression: pt is recommended to SNF by PT/OT, seek for replacement pain control continue PT/OT pt had fall twice at home. Xray reveals fracture at pelvis. consult with Orthopedics, follow up pain control PT/OT evaluation and treatment, per orthopedics recommend, follow up (2) UTI (urinary tract infection) Impression: continue Rocephin, follow up UA pt with hx of frequent UTI. UA reveals trace of ULE continue Rocephin (3) HTN (hypertension) Impression: stable, continue vital monitor (4) Hx of chronic congestive heart failure Impression: stable, continue home meds Lasix vital tele monitor (5) CKD (chronic kidney disease) Impression: stable, hydration, avoid nephrotoxic (6) Dependence on supplemental oxygen Impression: continue support, O2 supplement PRN (7) pelvis fracture consult with orthopedics, follow up no operation per orthopedics pain control PT/OT plan to be D/C SNF (8) pneumonia and increase of shortness of breath CXR reveals bibasilar infiltrates, pt has increase of effort to breath add Azithyromycin, pt is on Rocephin for UTI continue O2 supplement daily lab and vital monitor d/c IVF resume home Lasix
[2017-05-09] MEDS: CARBOXYMETHYLCELLULOSE OPHTH DROPS EACHEYE SCH ×2 (16:52→20:09)
[2017-05-09] MEDS: AZITHROMYCIN 250 MG TABLET PO SCH (16:52)
[2017-05-09] MEDS: SODIUM CHLORIDE FLUSH 0.9% 10 ML SYRINGE IVP PRN (17:40)
[2017-05-09] MEDS ORDERED: TIMOLOL 0.5% OPHTH DROPS EACHEYE SCH (21:00)
[2017-05-09] MEDS: HYDROcod/ACETAM 5/325 MG TABLET PO PRN (22:44)
[2017-05-10] MEDS: MORPHINE 2 MG/ML CARPUJECT IVP PRN (05:01)
[2017-05-10] MEDS: SODIUM CHLORIDE FLUSH 0.9% 10 ML SYRINGE IVP SCH ×2 (05:02→13:10)
[2017-05-10] MEDS: ACETAMINOPHEN 500 MG TABLET PO SCH ×2 (05:04→15:01)
[2017-05-10 05:08] LABS: BASOPHILS # (AUTO) 0.1 10^3/uL (0.0-0.1); BASOPHILS % (AUTO) 1.2 %; EOSINOPHILS # (AUTO) 0.4 10^3/uL (0.0-0.7); HGB - HEMOGLOBIN 13.5 g/dL (12.0-16.0); LYMPHOCYTES # (AUTO) 0.9 10^3/uL (1.5-3.5); LYMPHOCYTES % (AUTO) 14.3 %; MEAN CORPUSCULAR HEMOGLOBIN 34.4 pg (27.0-31.0); MEAN CORPUSCULAR HGB CONC 33.2 g/dL (32.0-36.0); MEAN CORPUSCULAR VOLUME 103.4 fL (81.0-99.0); MEAN PLATELET VOLUME 8.5 fL (7.9-10.8); MONOCYTES # (AUTO) 0.6 10^3/uL (0.0-1.0); MONOCYTES % (AUTO) 8.3 %; NEUTROPHILS # (AUTO) 4.6 10^3/uL (1.5-6.6); NEUTROPHILS % (AUTO) 70.2 %; PLT - PLATELET COUNT 195 10^3/uL (130-450); RED BLOOD COUNT 3.93 10^6/uL (4.20-5.40); RED CELL DISTRIBUTION WIDTH 14.4 % (12.0-15.0); WHITE BLOOD COUNT 6.6 x10^3/uL (4.8-10.8)
[2017-05-10 05:49] LABS: ALBUMIN 2.9 g/dL (3.2-5.5); ALBUMIN/GLOBULIN RATIO 0.9 (1.0-2.2); BILIRUBIN,TOTAL 0.6 mg/dL (0.2-1.0); CALCIUM 9.1 mg/dL (8.5-10.3); CREATININE 1.2 mg/dL (0.4-1.0); TOTAL PROTEIN 6.1 g/dL (6.7-8.2)
[2017-05-10] MEDS ORDERED: FUROSEMIDE 40 MG TABLET PO SCH (09:00)
[2017-05-10] MEDS ORDERED: POTASSIUM CHLORIDE 10 MEQ CAPSULE PO SCH (09:00)
[2017-05-10] MEDS: SODIUM CHLORIDE FLUSH 0.9% 10 ML SYRINGE IVP PRN ×2 (09:18)
[2017-05-10] MEDS: POLYETHYLENE GLYCOL 3350 17 GM PACKET PO SCH (09:21)
[2017-05-10] MEDS: LACTOBACILLUS RHAMNOSUS GG CAPSULE PO SCH (09:21)
[2017-05-10] MEDS: ASCORBIC ACID CHEW 500 MG TABLET PO SCH (09:22)
[2017-05-10] MEDS: AZITHROMYCIN 250 MG TABLET PO SCH (09:22)
[2017-05-10] MEDS: CHOLECALCIFEROL 400 UNIT TABLET PO SCH (09:22)
[2017-05-10] MEDS: MULTIVITAMIN TABLET PO SCH (09:23)
[2017-05-10] MEDS: CALCIUM CARB (OYSTER SHELL) 500 MG TABLET PO SCH (09:23)
[2017-05-10] MEDS: amLODIPine 5 MG TABLET PO SCH (09:23)
[2017-05-10] MEDS: ASPIRIN CHEW 81 MG TABLET PO SCH (09:24)
[2017-05-10] MEDS: TIMOLOL 0.5% OPHTH DROPS EACHEYE SCH ×2 (09:25→20:14)
--- NOTE | 2017-05-10 11:03 | PROVIDER PROGRESS NOTE ---
Subjective - Prog Note Date Prog Note Date: 05/10/17 Prog Note Time: 11:02 - Subjective Pt reports feeling: No change Subjective: Gaby is surrounded with 2 daughters at her bedside and remains pleasantly confused. She denies chest pain, discomfort, shortness of breath or a new cough. Patient could not directly answer questions being asked. Current Medications - Current Medications Current Medications: Active Medications Acetaminophen/Hydrocodone Bitart ([place] 5/325) 1 tab PO Q4HR PRN PRN Reason: Moderate PAIN Last Admin: 05/09/17 22:44 Dose: 1 tab Amlodipine Besylate (Norvasc) 5 mg PO DAILY [facility] Last Admin: 05/10/17 09:23 Dose: 5 mg Aspirin ([place] Aspirin) 81 mg PO DAILY [facility] Last Admin: 05/10/17 09:24 Dose: 81 mg Azithromycin (Zithromax) 250 mg PO DAILY [facility] Last Admin: 05/10/17 09:22 Dose: 250 mg Carboxymethylcellulose (Refresh 1% Ophth Drops) 1 drops EACHEYE QID [facility] Last Admin: 05/10/17 17:37 Dose: 1 drops Lactobacillus Rhamnosus (Culturelle) 1 cap PO DAILY [facility] Last Admin: 05/10/17 09:21 Dose: 1 cap Levofloxacin (Levaquin) 250 mg PO DAILY [facility] Morphine Sulfate (Roxanol) 5 mg PO Q2HR PRN PRN Reason: Severe PAIN Ondansetron HCl (Zofran Odt) 4 mg TL Q4HR PRN PRN Reason: Nausea / Vomiting Polyethylene Glycol (Miralax) 17 gm PO DAILY [facility] Last Admin: 05/10/17 09:21 Dose: 17 gm Timolol Maleate (Timoptic 0.5% Ophth Drops) 1 drops EACHEYE BID [facility] Last Admin: 05/10/17 09:25 Dose: 1 drops Lactobacillus Acidophilus [Probiotic Acidophilus] 1 tab PO DAILY 04/23/17 Aspirin 81 mg PO DAILY 05/07/17 Carboxymethylcellulose Sodium [Refresh Tears] 1 drops EACHEYE QID 05/07/17 Furosemide [Furosemide] 40 mg PO DAILY 05/07/17 Potassium Chloride 10 meq PO DAILY 05/07/17 Timolol 0.5% Ophth Drops [Timoptic 0.5% Ophth Drops] 1 drops EACHEYE BID Objective - Vital Signs/Intake & Output Reviewed Vital Signs: Yes Vital Signs: Vital Signs x48h Temp Pulse Resp BP Pulse Ox 05/10/17 08:11 36.3 C L 70 18 167/90 H 94 05/10/17 07:50 36.3 C L 94 18 160/90 H 92 Intake & Output: Intake & Output 05/07/17 05/08/17 05/09/17 05/10/17 23:59 23:59 23:59 23:59 Intake Total 300 1150 2351.104 200 Output Total 350 Balance 713 572 9239.104 200 - Objective General Appearance: positive: No acute distress, Alert, Anxious Eyes Bilateral: positive: Normal inspection ENT: positive: ENT inspection nml, Pharynx nml, Dry mucous membranes Neck: positive: Nml inspection, Thyroid nml, No JVD, Stiff neck Respiratory: positive: Chest non-tender, No respiratory distress, Wheezes, Rhonchi (coarse crackles bilaterally in low lobes. shallow breaths.) Cardiovascular: positive: No gallop, Irregularly irregular, Tachycardia, Systolic murmur, Decreased pulse(s) Peripheral Pulses: 1+ Radial (R), 1+ Radial (L) Abdomen: positive: Non-tender, No organomegaly, Nml bowel sounds, No distention Back: positive: Nml inspection Skin: positive: No rash, Warm, Dry Extremities: positive: Non-tender, Full ROM, Nml appearance, No pedal edema, Joint swelling Neurologic/Psychiatric: positive: Disoriented to place, Disoriented to time, Weakness, Sensory loss, Slurred/abnml speech, Depressed mood/affect, Other ( profoundly confused with a change in vision.) Reflexes: Bicep (R): 1+, Bicep (L): 1+ - Lab Results Fish Bones: 05/11/17 04:20 05/11/17 04:20 Other Labs: Lab Results x24hrs 05/10/17 05/10/17 Range/Units 04:25 04:25 WBC 6.6 (4.8-10.8) x10^3/uL RBC 3.93 L (4.20-5.40) 10^6/uL Hgb 13.5 (12.0-16.0) g/dL Hct 40.6 (37.0-47.0) % MCV 103.4 H (81.0-99.0) fL MCH 34.4 H (27.0-31.0) pg MCHC 33.2 (32.0-36.0) g/dL RDW 14.4 (12.0-15.0) % Plt Count 195 (130-450) 10^3/uL MPV 8.5 (7.9-10.8) fL Neut # 4.6 (1.5-6.6) 10^3/uL Lymph # 0.9 L (1.5-3.5) 10^3/uL [place] # 0.6 (0.0-1.0) 10^3/uL Eos # 0.4 (0.0-0.7) 10^3/uL Baso # 0.1 (0.0-0.1) 10^3/uL Absolute Nucleated RBC 0.00 x10^3/uL Nucleated RBC % 0.1 /100WBC Sodium 141 (135-145) mmol/L Potassium 5.0 (3.5-5.0) mmol/L Chloride 107 (101-111) mmol/L Carbon Dioxide 23 (21-32) mmol/L Anion Gap 11.0 (6-13) BUN 34 H (6-20) mg/dL Creatinine 1.2 H (0.4-1.0) mg/dL Estimated GFR (MDRD) 42 L (>89) Glucose 100 (70-100) mg/dL Calcium 9.1 (8.5-10.3) mg/dL Total Bilirubin 0.6 (0.2-1.0) mg/dL AST 36 (10-42) IU/L ALT 17 (10-60) IU/L Alkaline Phosphatase 62 (42-121) IU/L Total Protein 6.1 L (6.7-8.2) g/dL Albumin 2.9 L (3.2-5.5) g/dL Globulin 3.2 (2.1-4.2) g/dL Albumin/Globulin Ratio 0.9 L (1.0-2.2) - Diagnostic Imaging Diagnostic Imaging Results: positive: Final report reviewed Diagnostic Imaging Comments: FRONTAL CHEST: 05/09/2017 CLINICAL INDICATION: Shortness of breath. COMPARISON: 04/23/2017. FINDINGS: Frontal view of the chest demonstrates an enlarged cardiac silhouette. Bibasilar patchy infiltrates are now present. No effusion or pneumothorax is seen. IMPRESSION: INTERVAL DEVELOPMENT OF PATCHY BIBASILAR INFILTRATES. STABLE CARDIOMEGALY. Assessment/Plan - Problem List (1) Pneumonia Impression: A chest x-ray was completed and indicates bilateral infiltrates. Patient wears chronic oxygen. Plan: Treat with oral agents since IV was lost. Based on patient condition, no IV was started. Qualifiers: Pneumonia type: due to unspecified organism Laterality: bilateral Lung location: lower lobe of lung Qualified Code(s): J18.9 - Pneumonia, unspecified organism (2) CKD (chronic kidney disease) Impression: Patient has noted kidney failure since at least 11/2015 with creatinine max of 1.7, baseline creatinine of 1.4, and today creatinine is 1.2. GFR is between 36 -42 during this hospital stay, so she falls into the stage 3 criteria. She is prescribed furosemide 40mg PO daily for her heart failure, which is now on hold. Plan: Maintain appropriate fluid balance. HOLDing diuretic due to worsening creatinine. Qualifiers: Chronic kidney disease stage: stage 3 (moderate) Qualified Code(s): N18.3 - Chronic kidney disease, stage 3 (moderate) (3) Dependence on supplemental oxygen Impression: As per echocardiogram that was completed 11/23/16, patient is known to have pulmonary hypertension, heart failure and wears chronic oxygen. Plan: Continue oxygen at 1-2L via nasal cannula. (4) Fall Impression: Patient had a mechanical fall and it was felt that she did not loose consciousness, but was found to have a UTI and altered mental status. Plan: Patient remains on fall precautions and PT has been working with her. (5) HTN (hypertension) Impression: Patient has a known history of HTN. Blood pressures today have been 160/90 and 151/91. Since furosemide was on hold, patient was prescribed norvasc 5mg daily. Plan: Monitor vital signs and continue medical management. (6) Pelvic ring fracture Impression: A pelvic CT was performed in the ED and showed an acute fracture. Dr. Valle was consulted, and no surgery is indicated. Plan: Treat for pain, PT to evaluate. Qualifiers: Encounter type: initial encounter Fracture type: closed Qualified Code(s) : S32.810A - Multiple fractures of pelvis with stable disruption of pelvic ring , initial encounter for closed fracture (7) UTI (urinary tract infection) Impression: Patient had trace evidence of UTI, but in the setting of acute confusion and pneumonia. Plan: Treat with oral agents due to lost IV access. Qualifiers: Urinary tract infection type: acute cystitis
[2017-05-10] MEDS ORDERED: MORPHINE 2 MG/ML CARPUJECT IVP PRN (11:05)
[2017-05-10] MEDS: CARBOXYMETHYLCELLULOSE OPHTH DROPS EACHEYE SCH ×4 (11:58→20:13)
[2017-05-10] MEDS ORDERED: levoFLOXacin 250 MG TABLET PO SCH (12:00)
[2017-05-10] MEDS: cefTRIAXone 1 GM in SODIUM CHLORIDE 0.9% MINIBAG 100 ML IV SCH (16:09)
[2017-05-10] MEDS ORDERED: ONDANSETRON ODT 4 MG TABLET TL PRN (17:50)
[2017-05-10] MEDS: MORPHINE SOL 10 MG/0.5 ML SYRINGE PO PRN ×4 (18:00→23:55)
[2017-05-10] MEDS: HYDROcod/ACETAM 5/325 MG TABLET PO PRN (19:05)
[2017-05-11] MEDS: MORPHINE SOL 10 MG/0.5 ML SYRINGE PO PRN ×4 (03:24→20:16)
[2017-05-11 04:38] LABS: BASOPHILS # (AUTO) 0.1 10^3/uL (0.0-0.1); BASOPHILS % (AUTO) 0.9 %; EOSINOPHILS # (AUTO) 0.4 10^3/uL (0.0-0.7); LYMPHOCYTES # (AUTO) 0.7 10^3/uL (1.5-3.5); LYMPHOCYTES % (AUTO) 9.1 %; MEAN CORPUSCULAR HEMOGLOBIN 33.3 pg (27.0-31.0); MEAN CORPUSCULAR HGB CONC 32.1 g/dL (32.0-36.0); MEAN CORPUSCULAR VOLUME 103.8 fL (81.0-99.0); MONOCYTES # (AUTO) 0.5 10^3/uL (0.0-1.0); MONOCYTES % (AUTO) 6.3 %; NEUTROPHILS # (AUTO) 5.9 10^3/uL (1.5-6.6); NEUTROPHILS % (AUTO) 78.7 %; PLT - PLATELET COUNT 212 10^3/uL (130-450); RED BLOOD COUNT 3.91 10^6/uL (4.20-5.40); RED CELL DISTRIBUTION WIDTH 14.6 % (12.0-15.0); WHITE BLOOD COUNT 7.4 x10^3/uL (4.8-10.8)
[2017-05-11 04:55] LABS: ALBUMIN 2.8 g/dL (3.2-5.5); BILIRUBIN,TOTAL 0.7 mg/dL (0.2-1.0); CALCIUM 8.8 mg/dL (8.5-10.3); CREATININE 1.2 mg/dL (0.4-1.0); TOTAL PROTEIN 5.6 g/dL (6.7-8.2)
[2017-05-11] MEDS: AZITHROMYCIN 250 MG TABLET PO SCH (08:48)
[2017-05-11] MEDS: LACTOBACILLUS RHAMNOSUS GG CAPSULE PO SCH (08:48)
[2017-05-11] MEDS: POLYETHYLENE GLYCOL 3350 17 GM PACKET PO SCH (08:49)
[2017-05-11] MEDS: CARBOXYMETHYLCELLULOSE OPHTH DROPS EACHEYE SCH ×4 (08:49→20:03)
[2017-05-11] MEDS: ASPIRIN CHEW 81 MG TABLET PO SCH (08:49)
[2017-05-11] MEDS: amLODIPine 5 MG TABLET PO SCH (08:49)
[2017-05-11] MEDS: TIMOLOL 0.5% OPHTH DROPS EACHEYE SCH ×2 (08:49→20:03)
[2017-05-11] MEDS ORDERED: levoFLOXacin 250 MG TABLET PO SCH (09:00)
--- NOTE | 2017-05-11 15:27 | PROVIDER PROGRESS NOTE ---
Subjective - Prog Note Date Prog Note Date: 05/11/17 Prog Note Time: 08:00 - Subjective Pt reports feeling: No change Subjective: Daughters are at their mother's bedside. Gaby states that she has no pain, when she is not moving. She denies chest pain, increased cough or N/V. She continues to have very poor oral intake. Current Medications - Current Medications Current Medications: Active Medications Acetaminophen/Hydrocodone Bitart ([place] 5/325) 1 tab PO Q4HR PRN PRN Reason: Moderate PAIN Last Admin: 05/11/17 17:37 Dose: 1 tab Aspirin ([place] Aspirin) 81 mg PO DAILY [facility] Last Admin: 05/11/17 08:49 Dose: 81 mg Azithromycin (Zithromax) 250 mg PO DAILY [facility] Last Admin: 05/11/17 08:48 Dose: 250 mg Carboxymethylcellulose (Refresh 1% Ophth Drops) 1 drops EACHEYE QID [facility] Last Admin: 05/11/17 20:03 Dose: 1 drops Lactobacillus Rhamnosus (Culturelle) 1 cap PO DAILY [facility] Last Admin: 05/11/17 08:48 Dose: 1 cap Levofloxacin (Levaquin) 250 mg PO DAILY [facility] Last Admin: 05/11/17 08:48 Dose: 250 mg Lorazepam (Ativan) 0.5 mg SL Q6H PRN PRN Reason: Anxiety Morphine Sulfate (Roxanol) 5 mg PO Q2HR PRN PRN Reason: Severe PAIN Last Admin: 05/12/17 07:24 Dose: 5 mg Ondansetron HCl (Zofran Odt) 4 mg TL Q4HR PRN PRN Reason: Nausea / Vomiting Polyethylene Glycol (Miralax) 17 gm PO DAILY [facility] Last Admin: 05/11/17 08:49 Dose: Not Given Timolol Maleate (Timoptic 0.5% Ophth Drops) 1 drops EACHEYE BID [facility] Last Admin: 05/11/17 20:03 Dose: 1 drops Lactobacillus Acidophilus [Probiotic Acidophilus] 1 tab PO DAILY 04/23/17 Aspirin 81 mg PO DAILY 05/07/17 Carboxymethylcellulose Sodium [Refresh Tears] 1 drops EACHEYE QID 05/07/17 Furosemide [Furosemide] 40 mg PO DAILY 05/07/17 Potassium Chloride 10 meq PO DAILY 05/07/17 Timolol 0.5% Ophth Drops [Timoptic 0.5% Ophth Drops] 1 drops EACHEYE BID Objective - Vital Signs/Intake & Output Reviewed Vital Signs: Yes Vital Signs: Vital Signs x48h Temp Pulse Resp BP Pulse Ox 05/11/17 14:39 36.5 C 79 18 133/81 H 79 L 05/11/17 08:26 36.5 C 90 26 H 143/76 H 97 Intake & Output: Intake & Output 05/08/17 05/09/17 05/10/17 05/11/17 23:59 23:59 23:59 23:59 Intake Total 1150 2351.104 505 125 Output Total 350 Balance 800 2351.104 505 125 - Objective General Appearance: positive: No acute distress, Alert, Anxious, Lethargic Eyes Bilateral: positive: Normal inspection Eyes: OU Conjunctivae pale ENT: positive: ENT inspection nml, Pharynx nml, Dry mucous membranes Neck: positive: Nml inspection, Thyroid nml, No JVD Respiratory: positive: Chest non-tender, No respiratory distress, Wheezes, Rhonchi Cardiovascular: positive: Irregularly irregular, Tachycardia, Systolic murmur, Decreased pulse(s) Peripheral Pulses: 1+ Radial (R), 1+ Radial (L) Abdomen: positive: Non-tender, No organomegaly, Abnml bowel sounds Back: positive: Nml inspection Skin: positive: No rash, Warm, Dry, Pallor Extremities: positive: Non-tender, Full ROM, No pedal edema Neurologic/Psychiatric: positive: Disoriented to place, Disoriented to time, Weakness, Sensory loss, Slurred/abnml speech, Depressed mood/affect Reflexes: Bicep (R): 1+, Bicep (L): 1+ - Lab Results Fish Bones: 05/11/17 04:20 05/11/17 04:20 Other Labs: Lab Results x24hrs 05/11/17 05/11/17 Range/Units 04:20 04:20 WBC 7.4 (4.8-10.8) x10^3/uL RBC 3.91 L (4.20-5.40) 10^6/uL Hgb 13.0 (12.0-16.0) g/dL Hct 40.6 (37.0-47.0) % MCV 103.8 H (81.0-99.0) fL MCH 33.3 H (27.0-31.0) pg MCHC 32.1 (32.0-36.0) g/dL RDW 14.6 (12.0-15.0) % Plt Count 212 (130-450) 10^3/uL MPV 9.0 (7.9-10.8) fL Neut # 5.9 (1.5-6.6) 10^3/uL Lymph # 0.7 L (1.5-3.5) 10^3/uL [place] # 0.5 (0.0-1.0) 10^3/uL Eos # 0.4 (0.0-0.7) 10^3/uL Baso # 0.1 (0.0-0.1) 10^3/uL Absolute Nucleated RBC 0.01 x10^3/uL Nucleated RBC % 0.2 /100WBC Sodium 141 (135-145) mmol/L Potassium 4.4 (3.5-5.0) mmol/L Chloride 112 H (101-111) mmol/L Carbon Dioxide 21 (21-32) mmol/L Anion Gap 8.0 (6-13) BUN 30 H (6-20) mg/dL Creatinine 1.2 H (0.4-1.0) mg/dL Estimated GFR (MDRD) 42 L (>89) Glucose 99 (70-100) mg/dL Calcium 8.8 (8.5-10.3) mg/dL Total Bilirubin 0.7 (0.2-1.0) mg/dL AST 35 (10-42) IU/L ALT 16 (10-60) IU/L Alkaline Phosphatase 57 (42-121) IU/L Total Protein 5.6 L (6.7-8.2) g/dL Albumin 2.8 L (3.2-5.5) g/dL Globulin 2.8 (2.1-4.2) g/dL Albumin/Globulin Ratio 1.0 (1.0-2.2) - Diagnostic Imaging Diagnostic Imaging Results: positive: Prelim report reviewed, Final report reviewed Assessment/Plan - Problem List (1) Pneumonia Impression: A chest x-ray was completed and indicates bilateral infiltrates. Patient wears chronic oxygen. Plan: Treat with oral agents since IV was lost. Based on patient condition, no IV was started. Qualifiers: Pneumonia type: due to unspecified organism Laterality: bilateral Lung location: lower lobe of lung Qualified Code(s): J18.9 - Pneumonia, unspecified organism (2) CKD (chronic kidney disease) Impression: Patient has noted kidney failure since at least 11/2015 with creatinine max of 1.7, baseline creatinine of 1.4, and last creatinine is 1.2. GFR is between 36- 42 during this hospital stay, so she falls into the stage 3 criteria. She is prescribed furosemide 40mg PO daily for her heart failure, which is now on hold. Plan: Maintain appropriate fluid balance. HOLDing diuretic due to worsening creatinine. Qualifiers: Chronic kidney disease stage: stage 3 (moderate) Qualified Code(s): N18.3 - Chronic kidney disease, stage 3 (moderate) (3) Dependence on supplemental oxygen Impression: As per echocardiogram that was completed 11/23/16, patient is known to have pulmonary hypertension, heart failure and wears chronic oxygen. Plan: Continue oxygen at 1-2L via nasal cannula. (4) Fall Impression: Patient had a mechanical fall and it was felt that she did not loose consciousness, but was found to have a UTI and altered mental status. Plan: Patient remains on fall precautions and PT has been working with her. (5) HTN (hypertension) Impression: Patient has a known history of HTN. Blood pressure was 124/69. Since furosemide was on hold, patient was prescribed norvasc 5mg daily. Plan: Monitor vital signs and continue medical management. (6) Pelvic ring fracture Impression: A pelvic CT was performed in the ED and showed an acute fracture. Dr. Valle was consulted, and no surgery is indicated. Plan: Treat for pain, PT to evaluate. Qualifiers: Encounter type: initial encounter Fracture type: closed Qualified Code(s) : S32.810A - Multiple fractures of pelvis with stable disruption of pelvic ring , initial encounter for closed fracture
[2017-05-11] MEDS: HYDROcod/ACETAM 5/325 MG TABLET PO PRN (17:37)
[2017-05-12] MEDS: MORPHINE SOL 10 MG/0.5 ML SYRINGE PO PRN ×4 (07:24→13:07)
[2017-05-12] MEDS ORDERED: SENNA SYRUP 8.8 MG/5 ML UDC PO PRN (08:53)
--- NOTE | 2017-05-12 09:02 | ADVANCE CARE PLANNING NOTE ---
Advance Care Planning - Date/Time Date: 05/12/17 Time: 09:00 - Purpose of encounter Text: To discuss end of life wishes and goals of care that will be directed towards comfort. - Parties in attendance Parties in attendance: Myself (RONNA Carlson), patient (Gaby Beltran), and daughter (Reyna Jimenez) in the patient's hospital room. - Decisional capacity Decisional capacity of: Patient is non-decisional since her fall that caused a pelvic fracture leading up to this admission. - Subjective/Patient's story Subjective/Patient's story: Gaby's wishes, per discussion with her daughter, Reyna is to be a DNR. Since IV access was lost, it was decided to stop attempts to gain IV access. This caused the patient discomfort. Patient's daughter notes that her mother has been loosing weight over the past several months and during this hospital stay has continued to decline in regards to oral intake. The most troubling, besides the fractured pelvis, is the change in mental status that has also affected her vision. - Objective/Medical story Objective/Medical Story: Upon presentation to ED patient was found to have a pelvic ring fracture and Dr. Valle, ortho surgery was contacted who determined no surgery. Patient resides with her daughter and son-in-law and was independent prior to this. She was also noted to have altered mental status. Due to the patient having very little intake, persistent AMS and tremendous pain when attempting to move, a palliative care consulted has been ordered. There is little hope of physical improvement and a palliative/hospice approach is recommended. DaughterReyna is agreeable and appreciative of a planned visit from Geni Kessler today at 1: 30pm. - Goals of Care Goals of care determinations: Care directed toward comfort. Bed rest with turns. No further attempts to get in the chair. Appreciated recommendations from RONNA Lewis. - Plan Plan: Order for Palliative consult, comfort care order set, and frequent nursing care with fewer vital signs. - Code Status Code Status: Do Not Attempt Resuscitation - Time Spent on Advance Care Planning Time spent on advance care plannin
[2017-05-12] MEDS: CARBOXYMETHYLCELLULOSE OPHTH DROPS EACHEYE SCH ×4 (09:23→21:34)
[2017-05-12] MEDS: TIMOLOL 0.5% OPHTH DROPS EACHEYE SCH ×2 (09:35→21:31)
[2017-05-12] MEDS: HYDROcod/ACETAM 5/325 MG TABLET PO PRN (10:06)
[2017-05-12] MEDS: LORazepam 0.5 MG TABLET SL PRN (11:06)
[2017-05-12] MEDS: FUROSEMIDE 40 MG TABLET PO SCH (13:05)
[2017-05-12 15:32] VITALS: BP 134/74
--- NOTE | 2017-05-12 16:58 | CONSULTATION NOTE ---
Palliative Care Consultation - Referral Referring Provider: Carol FRIEND Time of Visit: [id number] Referral setting: Hospitalized patient Referral Reason: Goals of Care/Failure to Thrive - Information Sources Records reviewed: RN notes reviewed, Previous records reviewed History/Review of Systems obtained from: Family Exam limitations: Clinical condition (patient with acute delerium; pleasantly confused not able to answer questions coherently) - History of Present Illness Brief History of Present Illness: This is a very sweet and pleasant 86-year-old woman who was admitted 05/07 after a fall at home that resulted in a nondisplaced fracture over the inferior right pubic ramus and a comminuted displaced fracture of the superior right pubic ramus. She did not continue to progress, she was having more difficulty with IV access, less oral intake, and developed on 05/09 bibasilar infiltrates with increasing respiratory distress. Patient has been treated with oral antibiotics with poor response, increasing shortness of breath, and patient has presented since admit, with acute delirium. In review of her history she actually had some significant changes in her her declining cognitive status starting about 04/23, when she was seen in the ED, she was started previously the day before on antibiotics, her urine was negative. She did have some mild respiratory changes, attributed to an exacerbation of her CHF, with instructions to increase her Lasix and potassium. Her daughter Reyna, was on vacation previous to this ED admit with her other family covering, and has not found her to have returned to her baseline since she has returned. As patient was presenting with ongoing functional and cognitive decline, and was not going to be a rehab candidate, the decision was made to focus on comfort. I am asked to meet with the family to determine goals of care, including considering home with hospice. 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: reports: Other (chronic kidney disease) HEENT: reports: Cataracts Derm: reports: Skin cancer surgery - Substance History Use: Uses substance without health or social issues: NONE, Alcohol (a glass of wine with dinner) Social History - Living Situation Living arrangement: At home Living Situation: With family (Daughter Reyna (DPOA) and her Obi moved in to support their parents, about 3 years ago, their 17 year old daughter is with them as well.Has been passed about 2-1/2 years ago of complications related to Parkinson's at [facility], and her comfort care) Family History - Family History Family History: Mother: , Father: , Other family: Alive and Well ( of Parkinsons) Medications/Allergies - Medications Active Medication List: Active Medications Acetaminophen/Hydrocodone Bitart ([place] 5/325) 1 tab PO Q4HR PRN PRN Reason: Moderate PAIN Last Admin: 05/12/17 10:06 Dose: 1 tab Carboxymethylcellulose (Refresh 1% Ophth Drops) 1 drops EACHEYE QID [facility] Last Admin: 05/12/17 13:10 Dose: 1 drops Fentanyl (Duragesic) 1 patch TOP Q3D [facility] Furosemide (Lasix) 40 mg PO DAILY [facility] Last Admin: 05/12/17 13:05 Dose: 40 mg Lorazepam (Ativan) 0.5 mg SL Q6H PRN PRN Reason: Anxiety Last Admin: 05/12/17 11:06 Dose: 0.5 mg Morphine Sulfate (Roxanol) 5 mg PO Q1HR PRN PRN Reason: Severe PAIN Last Admin: 05/12/17 13:07 Dose: 5 mg Ondansetron HCl (Zofran Odt) 4 mg TL Q4HR PRN PRN Reason: Nausea / Vomiting Senna (Senokot Syrup) 8.6 mg PO BID PRN PRN Reason: Constipation Timolol Maleate (Timoptic 0.5% Ophth Drops) 1 drops EACHEYE BID [facility] Last Admin: 05/12/17 09:35 Dose: Not Given Lactobacillus Acidophilus [Probiotic Acidophilus] 1 tab PO DAILY 04/23/17 Aspirin 81 mg PO DAILY 05/07/17 Carboxymethylcellulose Sodium [Refresh Tears] 1 drops EACHEYE QID 05/07/17 Furosemide [Furosemide] 40 mg PO DAILY 05/07/17 Potassium Chloride 10 meq PO DAILY 05/07/17 Timolol 0.5% Ophth Drops [Timoptic 0.5% Ophth Drops] 1 drops EACHEYE BID - Allergies Allergies/Adverse Reactions: Allergies Allergy/AdvReac Type Severity Reaction Status Date / Time No Known Drug Allergies Allergy Verified 05/06/17 22:33 Review of Systems - Constitutional Constitutional: reports: Fatigue, Poor appetite, Weight loss (patient 85 pounds , was 95 pounds on admit in October) - Eyes Eyes: reports: Vision loss - Ears, Nose & Throat Ears, Nose & Throat: reports: Hearing loss, Dry mouth - Cardiovascular Cardiovascular: reports: Irregular heart rate - Respiratory Respiratory: reports: SOB at rest, SOB with exertion - Gastrointestinal Gastrointestinal: reports: Other (minimal intake for several days) - Genitourinary Genitourinary: reports: Other (currently with mak catheter) - Musculoskeletal Musculoskeletal: reports: Other (bedbound with severe fractures) - Integumentary Integumentary: reports: Dryness - Neurological Neurological: reports: Memory problems - Psychiatric Psychiatric: reports: Anxiety, Hallucinations, Aggitation - Hematologic/Lymphatic Hematologic/Lymphatic: reports: Bruising (upper arms bruising from multiple IV sticks), Recurrent infections (utis/ now tx for pneumonia) Physical Exam - Vital Signs Vital Signs: Vital Signs x48h Pulse Resp BP 05/12/17 15:45 16 05/12/17 15:31 83 134/74 H 05/12/17 14:00 22 05/12/17 13:40 12 05/12/17 13:07 34 H 05/12/17 12:00 26 H 05/12/17 11:35 40 H 05/12/17 09:35 35 H - Physical Exam General Appearance: positive: Mild distress (some anxiety noted; responded well to medication reported respiratory effort) Eyes Bilateral: positive: Other (focused up on ceiling) ENT: positive: Dry mucous membranes Neck: positive: Stiff neck (some hyperextension) Cardiovascular: positive: Irregular, Tachycardia, Systolic murmur Respiratory: positive: Diminished throughout Abdomen: positive: Soft Skin: positive: Bruising (noted extended bruising upper arms) Extremities: positive: No pedal edema Neurologic/Psychiatric: positive: Disoriented to person, Disoriented to place, Disoriented to time, Other (nonsensical answers; unclear if recognized daughter/ brionna; seems bright and cheery in exchange) Palliative Care - POLST Patient has POLST: Yes POLST Status: DNR, Comfort Measures (completed with goals conversation) Pain: Pain improved (has been receiving morphine 5 mg about every 2 hrs/55 mg in last 24) Anorexia: None (not eating or drinking currently), Weight loss Sleep: Variable sleep pattern Constipation: Comment (last documented bowel movement 05/11 small brown) - Palliative Care Discussion: Met with patient, she does not appear to be any kind of distress, she denies being worried about anything. Her family at the bedside definitely sees her decline. We did convene a family meeting including Reyna Tate daughter and DPOA , her Obi, patient's oldest son Kalin and his Ailyn, and a daughter Kelly Kaiser, all from [place]. She has 2 other sons back [facility] as well as a son up in [place]. We did discuss in the context of the continuum of care, patiently certainly presents with poor prognosis of hours to days, she presents with palliative care performance scale of 10%. Reyna and Obi, have a 17-year-old daughter at home, and they did have a family discussion last night and are hopeful patient can at home. Their experience with their father with Parkinson's, who had a prolonged and drawnout fairly difficult at [facility], definitely informs their current concerns and anxiety. Fortunately, patient with decreased intake, does not present with significant fluid overload, and has been able to be controlled with frequent morphine and Lorazepam. Counseling regarding the continuum of care and support from hospice provided, including the hospice nurse would meet them, provide training and oversight regarding instruction on medication, they are concerned about her being uncomfortable with the transfer. We did review and put her on a pain patch, and medicated both before and when she arrives at home with the ambulance , reviewed the need to get the medications prior to discharge to have available for the hospice nurse. Counseling regarding hospice benefit, equipment would need hospital bed, oxygen, over the bed table. Patient currently bedbound would not require other equipment. Questions answered and concerns addressed, and conclusion did agree if patient were eminently passing tomorrow morning, we would not go forward on a discharge. But if patient at same level of alertness , and with current interaction, can proceed with discharge for tomorrow afternoon. Will make final decision in the morning. Results - Lab Results Lab results reviewed: Yes Fish Bones: 05/11/17 04:20 05/11/17 04:20 Impression and Recommendations - Palliative Care Impression: This is a 86-year-old woman who has had an acute decline related to her fall and fractures, now with pneumonia, and decreased intake now to the point of oral care only. Patient does present as a failure to thrive, with family goals to focus on comfort, and moving forward for discharge to hospice tomorrow afternoon. Recommendations/Counseling Done: 1. Acute pain, related to her multiple fractures. Recommendation to initiate fentanyl 12 mcg patch, continue with adequate breakthrough dosing of the morphine 5 mg, may need to titrate up prior to discharge tomorrow morning. Goal is to decrease oral pain medication need. 2. Anxiety. This is multifactorial in origin, including acute delirium, breathlessness, and confusion. Patient does have Lorazepam, would continue to use this on a regular basis. 3. Advanced care planning. Family meeting completed, goals are to focus on comfort and respectful in either here at the hospital setting, or at home with hospice. I did contact father Shine, patient is Religion, it is important to the family to have last writes. The expectation is he will most likely be here by 5:00. This information was communicated to the family. Coordination of care provided with follow-up with hospice, hospitalist, and needs for scripts prior to discharge. Provided hard choices for loving people, and addressed all questions and concerns as they arose in conversation. Thank you Christiano FRIEND for asking the palliative care consult service to be part of the care team, will coordinate handoff with hospice, and follow-up in a.m. for decision regarding appropriate to discharge her not Time Spent: 75 minutes with greater than 50% of this done in counseling regarding goals of care, the continuum of care, coordination of care with hospice and hospitalist, and anticipatory guidance provided follow-up with CONTRACTS ADVISOR for transportation needs, currently hospice nurse scheduled to be at the home at 1530 tomorrow 05/13
[2017-05-12] MEDS ORDERED: fentaNYL 12 MCG PATCH TOP SCH (17:00)
--- NOTE | 2017-05-12 18:11 | PROVIDER PROGRESS NOTE ---
Subjective - Prog Note Date Prog Note Date: 05/12/17 Prog Note Time: 07:30 - Subjective Pt reports feeling: Worse Subjective: Patient was found with somewhat labored breathing. Her daughters are at the bedside. She states she has no pain when asked. Current Medications - Current Medications Current Medications: Active Medications Acetaminophen/Hydrocodone Bitart ([place] 5/325) 1 tab PO Q4HR PRN PRN Reason: Moderate PAIN Last Admin: 05/12/17 10:06 Dose: 1 tab Carboxymethylcellulose (Refresh 1% Ophth Drops) 1 drops EACHEYE QID [facility] Last Admin: 05/12/17 13:10 Dose: 1 drops Fentanyl (Duragesic) 1 patch TOP Q3D [facility] Furosemide (Lasix) 40 mg PO DAILY [facility] Last Admin: 05/12/17 13:05 Dose: 40 mg Lorazepam (Ativan) 0.5 mg SL Q6H PRN PRN Reason: Anxiety Last Admin: 05/12/17 11:06 Dose: 0.5 mg Morphine Sulfate (Roxanol) 5 mg PO Q1HR PRN PRN Reason: Severe PAIN Last Admin: 05/12/17 13:07 Dose: 5 mg Ondansetron HCl (Zofran Odt) 4 mg TL Q4HR PRN PRN Reason: Nausea / Vomiting Senna (Senokot Syrup) 8.6 mg PO BID PRN PRN Reason: Constipation Timolol Maleate (Timoptic 0.5% Ophth Drops) 1 drops EACHEYE BID [facility] Last Admin: 05/12/17 09:35 Dose: Not Given Lactobacillus Acidophilus [Probiotic Acidophilus] 1 tab PO DAILY 04/23/17 Aspirin 81 mg PO DAILY 05/07/17 Carboxymethylcellulose Sodium [Refresh Tears] 1 drops EACHEYE QID 05/07/17 Furosemide [Furosemide] 40 mg PO DAILY 05/07/17 Potassium Chloride 10 meq PO DAILY 05/07/17 Timolol 0.5% Ophth Drops [Timoptic 0.5% Ophth Drops] 1 drops EACHEYE BID Objective - Vital Signs/Intake & Output Reviewed Vital Signs: Yes Vital Signs: Vital Signs x48h Pulse Resp BP 05/12/17 16:30 14 05/12/17 15:45 16 05/12/17 15:31 83 134/74 H 05/12/17 14:00 22 05/12/17 13:40 12 05/12/17 13:07 34 H 05/12/17 12:00 26 H 05/12/17 11:35 40 H Intake & Output: Intake & Output 05/09/17 05/10/17 05/11/17 05/12/17 23:59 23:59 23:59 23:59 Intake Total 2351.104 505 165 0 Output Total 125 Balance 2351.104 505 165 -125 - Objective General Appearance: positive: Alert, Moderate distress, Anxious Eyes Bilateral: positive: Normal inspection Eyes: OU Conjunctivae pale ENT: positive: ENT inspection nml, Dry mucous membranes Neck: positive: Nml inspection, Thyroid nml, No JVD, Stiff neck Respiratory: positive: Chest non-tender, No respiratory distress, Wheezes, Other (coarse crackles.) Cardiovascular: positive: Irregularly irregular, Tachycardia, Systolic murmur, Friction rub, Decreased pulse(s) Peripheral Pulses: 1+ Radial (R), 1+ Radial (L) Abdomen: positive: Non-tender, No organomegaly, Nml bowel sounds, No distention Back: positive: Nml inspection Skin: positive: No rash, Warm, Dry, Cyanosis (very mild around lips/face.), Pallor Extremities: positive: Non-tender, Nml appearance, No pedal edema, Joint swelling Neurologic/Psychiatric: positive: Disoriented to place, Disoriented to time, Weakness, Sensory loss, Slurred/abnml speech, Depressed mood/affect, Other (new baseline mentation is decreased.) Reflexes: Bicep (R): 1+, Bicep (L): 1+ - Lab Results Fish Bones: 05/11/17 04:20 05/11/17 04:20 - Diagnostic Imaging Diagnostic Imaging Results: positive: Final report reviewed Diagnostic Imaging Comments: Pelvis CT: FINDINGS: Bones: 1. Nondisplaced fracture inferior right pubic ramus. 2. Comminuted displaced fracture superior right pubic ramus. Posterior 6 mm displacement 2.5 cm cortical fracture fragment superior pubic ramus anterior 6 mm displacement 1.8 cm superior pubic ramus cortical fracture (image M1 49 series 3). Superior 1 cm displacement 1.8 cm in length cortical fracture fragment. 3. Negative for proximal right femur fracture. 4. Negative for right acetabulum fracture. 5. Abrupt angulation distal lower sacrum 90 degrees consistent with a remote fracture. Sacroiliac Joints: Degenerative changes left sacroiliac joint. Symphysis Pubis: Unremarkable. Right Hip: Mild degenerative changes right hip. Negative for increased fluid. Left Hip: Mild degenerative changes left hip. Negative for left hip increased fluid. Musculature: Mild asymmetric enlargement right obturator internus muscle consistent with contusion or hemorrhage. Pelvic Cavity: There is a small hematoma 4.0 x 2.4 cm and right lateral pelvic recess. Small hemorrhage left lateral pelvic recess. Extensive sigmoid diverticulosis. Pelvic floor relaxation with pessary. Possible cyst 1.7 cm a right lateral pelvis adjacent to the right hypogastric artery (image 95 series 3 ). Other: No lymphadenopathy. No free air or free fluid. The other visualized soft tissues are unremarkable. Severe L5-S1 disk degeneration. Mild left foraminal stenosis from a foraminal 2 mm disk protrusion osteophyte complex. IMPRESSION: 1. Negative for right hip fracture. 2. Comminuted displaced fracture superior right pubic ramus. 3. Nondisplaced fracture inferior right pubic ramus. 4. Contusion with enlargement and right obturator internus muscle and there is small hematoma right lateral pelvic recess. Sacrum/coccyx x-ray: FINDINGS: Alignment: Normal. The sacrum and coccyx are normally aligned. Bones: Mildly displaced fractures of the medial right obturator ring. Lateral film suggests an anterior buckle fracture of the mid sacrum. Joints: Normal. The sacroiliac joints and visualized hips are within normal limits. Soft Tissues: Dense arterial calcification noted. IMPRESSION: Mildly displaced fractures of the medial right obturator ring and likely of the mid sacrum. EXAM: LUMBOSACRAL SPINE RADIOGRAPHY EXAM DATE: 05/06/2017 11:34 PM. CLINICAL HISTORY: Fall. Back pain. COMPARISONS: 04/20/2015. TECHNIQUE: 3 views. FINDINGS: Alignment: Normal. No spondylolisthesis or scoliosis. Bones: Five [id number] lumbar vertebral bodies are present. No fractures or bone lesions. Disks: Mild disk space narrowing at L4-L5. Sacroiliac Joints: Unremarkable. Soft Tissues: Dense arterial calcification noted. The visualized bowel gas pattern is normal. IMPRESSION: 1. No acute lumbar spine abnormalities. 2. Mild degenerative disk disease at L4-L5. EXAM: RIGHT HIP AND PELVIS RADIOGRAPHY EXAM DATE: 05/06/2017 11:33 PM. HISTORY: Fall. Pain. COMPARISONS: 08/08/2016. TECHNIQUE: 1 view of the pelvis and 1 view of the hip. FINDINGS: Bones: Mildly displaced fractures of the medial right obturator ring. No other fractures identified. Joints: The bilateral hip, pubis symphysis, and sacroiliac joints are preserved. Soft Tissues: Arterial calcification noted. Pelvic pessary noted. IMPRESSION: Mildly displaced fractures of the right medial obturator ring. FRONTAL CHEST x-ray: 05/09/2017 CLINICAL INDICATION: Shortness of breath. COMPARISON: 04/23/2017. FINDINGS: Frontal view of the chest demonstrates an enlarged cardiac silhouette. Bibasilar patchy infiltrates are now present. No effusion or pneumothorax is seen. IMPRESSION: INTERVAL DEVELOPMENT OF PATCHY BIBASILAR INFILTRATES. STABLE CARDIOMEGALY. Assessment/Plan - Problem List (1) CKD (chronic kidney disease) Impression: Patient has noted kidney failure since at least 11/2015 with creatinine max of 1.7, baseline creatinine of 1.4, and last creatinine is 1.2. GFR is between 36- 42 during this hospital stay, so she falls into the stage 3 criteria. She is prescribed furosemide 40mg PO daily for her heart failure, which has been on hold. Due to increased respiratory efforts, a daily PO dose of lasix has been ordered. Lab testing is on hold due to goals of care being comfort directed. Plan: Continue to assess fluid status and consider a small daily dose of oral lasix based on breathing efforts. Qualifiers: Chronic kidney disease stage: stage 3 (moderate) Qualified Code(s): N18.3 - Chronic kidney disease, stage 3 (moderate) (2) Dependence on supplemental oxygen Impression: As per echocardiogram that was completed 11/23/16, patient is known to have pulmonary hypertension, heart failure and wears chronic oxygen. Patient suddenly required more oxygen late last PM as her oxygen saturations were in the 70's. This may have been from a small mucus plug verses increased fluid load. Patient is very uncomfortable with an oxygen mask. Orders written today for comfort. Less frequent vital signs. Plan: Continue oxygen at 1-6L via nasal cannula based on patient comfort. (3) Fall Impression: Patient had a mechanical fall and it was felt that she did not loose consciousness, but was found to have a UTI and altered mental status. Plan: Patient remains on fall precautions, no activity is indicated as she is now on comfort care. (4) Pelvic ring fracture Impression: A pelvic CT was performed in the ED and showed an acute fracture to the right pubic ramus. Dr. Valle was consulted, and no surgery is indicated. Plan: Treat for pain, PT has been discontinued after a comfort care based plan was implemented this morning. Qualifiers: Encounter type: initial encounter Fracture type: closed Qualified Code(s) : S32.810A - Multiple fractures of pelvis with stable disruption of pelvic ring , initial encounter for closed fracture (5) Comfort measures only status Impression: Patient is a DNR. Today, RONNA Lewis met with family for a palliative care consult. Goals of care are now comfort focused. Lorazepam and liquid morphine was prescribed and a hard-script was written for the family to potato picker before patient is discharged. I personally handed the paper script to daughter Reyna who stated she would fill this before her mother comes home tomorrow. Plan: Continue comfort cares and plan for discharge home with Hospice tomorrow.
[2017-05-13] MEDS: MORPHINE SOL 10 MG/0.5 ML SYRINGE PO PRN ×3 (06:21→13:13)
--- NOTE | 2017-05-13 07:32 | Discharge Plan ---
Discharge Plan Disposition: 50 Hospice/Home DC/Xfer Condition: Fair Prescriptions: LORazepam [Lorazepam] 0.5 mg PO Q4H PRN #15 tablet PRN Reason: Anxiety Morphine Sulfate [Morphine Sulf Oral (Roxanol)] 10 mg PO Q1H PRN #30 ml PRN Reason: Pain/Dyspnea Diet: Regular Activity Restrictions: No Restrictions Shower Restrictions: No Driving Restrictions: No Weight Bearing: Full Weight Additional Instructions or Follow Up instructions: Care to continue under the direction of Palliative care; RONNA Lewis with anticipation of Hospice admission later today after patient arrives home with daughter and son-in-law. Follow-Up Care: Hospice No Smoking: If you smoke, Please STOP! Call for help. Follow-up with: Awilda Catherine MD [Primary Care Provider] -
--- NOTE | 2017-05-13 07:35 | DISCHARGE SUMMARY ---
Discharge Summary Admit Date: 05/07/17 Discharge Date: 05/13/17 Discharging Provider: RONNA Carlson Primary Care Provider: Awilda Catherine Code Status: Do Not Attempt Resuscitation Condition at Discharge: Fair Discharge Disposition: 50 Hospice/Home DC/Xfer - DIAGNOSES Admission Diagnoses: Encephalopathy, unspecified (G93.40) Other symptoms and signs involving cognitive functions and awareness (R41.89) Difficulty in walking, not elsewhere classified (R26.2) Urinary tract infection, site not specified (N39.0) Discharge Diagnoses with Status of Each Condition: Stage 3 chronic kidney disease (N18.3) chronic, stable. Dependence on supplemental oxygen (Z99.81) chronic, ongoing treatment based on comfort. Pelvic ring fracture (S32.810A) new on this admission, stable. Comfort measures only status (Z51.5) new on this admission, stable with ongoing treatment at home. Fall (W19.XXXA) resolved. Both admitting UTI and PNA are now resolved. - HPI History of Present Illness: Gaby Beltran is an elderly 86-year old white female with a past medical history of hypertension, osteoarthritis, status post left knee arthroplasty, glaucoma, CHF, CKD, and chronic oxygen use for respiratory failure. The patient lives with her daughter and she has a history of dementia, which seems to be advancing recently. She also has a history of frequent UTIs and had been seen in the ED recently for mechanical falls, weakness and possible UTIs. The patient has recently been on Bactrim for UTI or for suppressive therapy. She also sustained a sacral fracture for which she was evaluated and it was felt she was safe enough at home and was discharged from the ED. On May 07, the patient was in her home with her daughter nearby. Her daughter reports that she heard a thud and when they checked on the patient she was found on the floor. She had no obvious injuries, but could not get up so EMS was called. Once she arrived in the ED, she underwent x-rays which showed a sacral fracture and a mildly displaced medial right obturator ring fracture. The patient was still unable to ambulate, had worsening AMS, and slight worsening of her vision. Patient will be admitted to inpatient for an orthopedic surgery opinion about the conservative management for this type of fracture and likely rehabilitation. - HOSPITAL COURSE Hospital Course: The following problems/diagnoses were prevalent during this hospital stay: (1) CKD (chronic kidney disease)- Patient has noted kidney failure since at least 11/2015 with creatinine max of 1.7, baseline creatinine of 1.4, and last creatinine is 1.2. GFR is between 36-42 during this hospital stay, so she falls into the stage 3 criteria. She was prescribed furosemide 40mg PO daily for her heart failure, which has been on hold. Due to increased respiratory efforts, a daily PO dose of lasix has been ordered. Lab testing is on hold due to goals of care being comfort directed. Fluid status was assessed and a small daily dose of oral lasix was given based on breathing efforts. (2) Dependence on supplemental oxygen- As per echocardiogram that was completed 11/23/16, patient is known to have pulmonary hypertension, heart failure and wears chronic oxygen. Patient suddenly required more oxygen late last PM as her oxygen saturations were in the 70's. This may have been from a small mucus plug verses increased fluid load. Patient is very uncomfortable with an oxygen mask. Orders written today for comfort. Less frequent vital signs. Patient was provided with continuous oxygen at 1-6L via nasal cannula based on patient comfort. (3) Fall- Patient had a mechanical fall and it was felt that she did not loose consciousness, but was found to have a UTI and altered mental status. Patient remains on fall precautions, no activity is indicated as she is now on comfort care. (4) Pelvic ring fracture- A pelvic CT was performed in the ED and showed an acute fracture to the right pubic ramus. Dr. Valle was consulted, and no surgery is indicated. Patient was treated for pain, physical therapy was discontinued after a comfort care based plan was implemented. (5) Comfort measures only status- Patient is a DNR. RONNA Lewis met with family for a palliative care consult. Goals of care are now comfort focused. Lorazepam and liquid morphine was prescribed and a hard-script was written for the family to pickle pumper before patient is discharged. I personally handed the paper script to daughterReyna who stated she would fill this before her mother comes home tomorrow. Patient was continued on comfort cares with plans for discharge home with Hospice. Disposition: Patient was transferred via S home for ongoing Hospice care. Patient was in fair condition at the time of discharge. Daughters were at the bedside and involved in the process. - ALLERGIES Allergies/Adverse Reactions: Allergies Allergy/AdvReac Type Severity Reaction Status Date / Time No Known Drug Allergies Allergy Verified 05/06/17 22:33 - MEDICATIONS Home Medications: Ambulatory Orders Medication Instructions Recorded Confirmed Carboxymethylcellulose Sodium 1 drops EACHEYE QID 05/07/17 05/07/17 [Refresh Tears] LORazepam [Lorazepam] 0.5 mg PO Q4H PRN #15 tablet 05/12/17 Morphine Sulfate [Morphine Sulf 10 mg PO Q1H PRN #30 ml 05/12/17 Oral (Roxanol)] fentaNYL 12 MCG PATCH [Duragesic 1 patch TOP Q3D #0 patch 05/13/17 12mcg patch] - PHYSICAL EXAM AT DISCHARGE General Appearance: positive: No acute distress, Lethargic Eyes Bilateral: positive: Other (gaze stare, dry conjuctivae) ENT: positive: Pharyngeal erythema, Dry mucous membranes Neck: positive: Thyroid nml, No JVD, Trachea midline, Stiff neck Respiratory: positive: Chest non-tender, Wheezes, Other (coarse crackles to bilateral lobes) Cardiovascular: positive: Tachycardia, Friction rub, Decreased pulse(s) Peripheral Pulses: positive: 1+ Abdomen: positive: Non-tender, No distention, Abnml bowel sounds Back: positive: Nml inspection Skin: positive: No rash, Warm, Dry, Cyanosis, Pallor Neurologic/Psychiatric: positive: Disoriented to place, Disoriented to time, Weakness, Sensory loss, Slurred/abnml speech, Depressed mood/affect, Other ( decreased mentation.) Reflexes: Bicep (R): 1+, Bicep (L): 0 - LABS Result Diagrams: 05/11/17 04:20 05/11/17 04:20 - DIAGNOSTIC IMAGING Diagnostic Imaging Results: Final report reviewed Diagnostic Imaging Results Comments: Pelvis CT: FINDINGS: Bones: 1. Nondisplaced fracture inferior right pubic ramus. 2. Comminuted displaced fracture superior right pubic ramus. Posterior 6 mm displacement 2.5 cm cortical fracture fragment superior pubic ramus anterior 6 mm displacement 1.8 cm superior pubic ramus cortical fracture (image M1 49 series 3). Superior 1 cm displacement 1.8 cm in length cortical fracture fragment. 3. Negative for proximal right femur fracture. 4. Negative for right acetabulum fracture. 5. Abrupt angulation distal lower sacrum 90 degrees consistent with a remote fracture. Sacroiliac Joints: Degenerative changes left sacroiliac joint. Symphysis Pubis: Unremarkable. Right Hip: Mild degenerative changes right hip. Negative for increased fluid. Left Hip: Mild degenerative changes left hip. Negative for left hip increased fluid. Musculature: Mild asymmetric enlargement right obturator internus muscle consistent with contusion or hemorrhage. Pelvic Cavity: There is a small hematoma 4.0 x 2.4 cm and right lateral pelvic recess. Small hemorrhage left lateral pelvic recess. Extensive sigmoid diverticulosis. Pelvic floor relaxation with pessary. Possible cyst 1.7 cm a right lateral pelvis adjacent to the right hypogastric artery (image 95 series 3 ). Other: No lymphadenopathy. No free air or free fluid. The other visualized soft tissues are unremarkable. Severe L5-S1 disk degeneration. Mild left foraminal stenosis from a foraminal 2 mm disk protrusion osteophyte complex. IMPRESSION: 1. Negative for right hip fracture. 2. Comminuted displaced fracture superior right pubic ramus. 3. Nondisplaced fracture inferior right pubic ramus. 4. Contusion with enlargement and right obturator internus muscle and there is small hematoma right lateral pelvic recess. Sacrum/coccyx x-ray: FINDINGS: Alignment: Normal. The sacrum and coccyx are normally aligned. Bones: Mildly displaced fractures of the medial right obturator ring. Lateral film suggests an anterior buckle fracture of the mid sacrum. Joints: Normal. The sacroiliac joints and visualized hips are within normal limits. Soft Tissues: Dense arterial calcification noted. IMPRESSION: Mildly displaced fractures of the medial right obturator ring and likely of the mid sacrum. EXAM: LUMBOSACRAL SPINE RADIOGRAPHY EXAM DATE: 05/06/2017 11:34 PM. CLINICAL HISTORY: Fall. Back pain. COMPARISONS: 04/20/2015. TECHNIQUE: 3 views. FINDINGS: Alignment: Normal. No spondylolisthesis or scoliosis. Bones: Five [id number] lumbar vertebral bodies are present. No fractures or bone lesions. Disks: Mild disk space narrowing at L4-L5. Sacroiliac Joints: Unremarkable. Soft Tissues: Dense arterial calcification noted. The visualized bowel gas pattern is normal. IMPRESSION: 1. No acute lumbar spine abnormalities. 2. Mild degenerative disk disease at L4-L5. EXAM: RIGHT HIP AND PELVIS RADIOGRAPHY EXAM DATE: 05/06/2017 11:33 PM. HISTORY: Fall. Pain. COMPARISONS: 08/08/2016. TECHNIQUE: 1 view of the pelvis and 1 view of the hip. FINDINGS: Bones: Mildly displaced fractures of the medial right obturator ring. No other fractures identified. Joints: The bilateral hip, pubis symphysis, and sacroiliac joints are preserved. Soft Tissues: Arterial calcification noted. Pelvic pessary noted. IMPRESSION: Mildly displaced fractures of the right medial obturator ring. FRONTAL CHEST x-ray: 05/09/2017 CLINICAL INDICATION: Shortness of breath. COMPARISON: 04/23/2017. FINDINGS: Frontal view of the chest demonstrates an enlarged cardiac silhouette. Bibasilar patchy infiltrates are now present. No effusion or pneumothorax is seen. IMPRESSION: INTERVAL DEVELOPMENT OF PATCHY BIBASILAR INFILTRATES. STABLE CARDIOMEGALY. - FOLLOW UP Follow Up: Disposition: 50 Hospice/Home DC/Xfer Condition: Fair Prescriptions: LORazepam [Lorazepam] 0.5 mg PO Q4H PRN #15 tablet PRN Reason: Anxiety Morphine Sulfate [Morphine Sulf Oral (Roxanol)] 10 mg PO Q1H PRN #30 ml PRN Reason: Pain/Dyspnea Diet: Regular Activity Restrictions: No Restrictions Shower Restrictions: No Driving Restrictions: No Weight Bearing: Full Weight Additional Instructions or Follow Up instructions: Care to continue under the direction of Palliative care; RONNA Lewis with anticipation of Hospice admission later today after patient arrives home with daughter and son-in-law. Follow-Up Care: Hospice - TIME SPENT Time Spent in Discharge (Minutes): 45
[2017-05-13] MEDS: LORazepam 0.5 MG TABLET SL PRN (09:06)
[2017-05-13] MEDS: FUROSEMIDE 40 MG TABLET PO SCH (09:06)
[2017-05-13] MEDS: CARBOXYMETHYLCELLULOSE OPHTH DROPS EACHEYE SCH ×2 (09:07→13:13)
[2017-05-13] MEDS: TIMOLOL 0.5% OPHTH DROPS EACHEYE SCH (09:07)
--- NOTE | 2017-05-13 17:39 | CONSULTATION NOTE ---
Palliative Care Follow Up - Referral Referring Provider: Carol FRIEND Time of Visit: Referral setting: Hospitalized patient Referral Reason: Failure to Thrive - Information Sources Records reviewed: RN notes reviewed, Previous records reviewed History/Review of Systems obtained from: Family (Reyna daughter, and two granddaughter), Caregiver (clinical staff) Exam limitations: Clinical condition (patient with verbal responses nonsensical; ) - History of Present Illness Update Brief HPI Update: Please see previous HPI. Patient continues to be a failure to thrive, she is much more comfortable, she is not presenting with any respiratory distress that she does have a bit of tachypnea. She does arouse, responds verbally though nonsensical, she does appear weaker but is not lethargic. Plans for discharge for hospice this afternoon we will proceed, reassured family if patient takes a turn for the worse or declines rapidly can reevaluate plan Social History - Living Situation Living arrangement: At home Living Situation: With family (returning to own home, daughter and ALEYDA, granddaughter live with her to provide support) Medications/Allergies - Medications Active Medication List: Carboxymethylcellulose Sodium [Refresh Tears] 1 drops EACHEYE QID 05/07/17 - Allergies Allergies/Adverse Reactions: Allergies Allergy/AdvReac Type Severity Reaction Status Date / Time No Known Drug Allergies Allergy Verified 05/06/17 22:33 Review of Systems - Constitutional Constitutional: reports: Fatigue, Weight loss - Respiratory Respiratory: reports: SOB at rest - Genitourinary Genitourinary: reports: Other (mak) - Musculoskeletal Musculoskeletal: reports: Other (bedbound) - Integumentary Integumentary: reports: Dryness - Neurological Neurological: reports: Memory problems (acute deliruim since hospitalization; forgetful only previously) - Psychiatric Psychiatric: reports: Delusions, Hallucinations - Hematologic/Lymphatic Hematologic/Lymphatic: reports: Recurrent infections (uti/pneumonia) Physical Exam - Vital Signs Vital Signs: pulse tachy at 106 - Physical Exam General Appearance: positive: No acute distress, Anxious Eyes Bilateral: positive: Other (dry) ENT: positive: Dry mucous membranes Neck: positive: No JVD, Trachea midline Cardiovascular: positive: Irregular, Tachycardia Respiratory: positive: Rhonchi (improved, scattered rhonchi) Abdomen: positive: Soft Skin: positive: Pallor, Bruising (upper extremities) Extremities: positive: No pedal edema Neurologic/Psychiatric: positive: Disoriented to person, Disoriented to place, Disoriented to time Palliative Care - POLST Patient has POLST: Yes POLST Status: DNR, Comfort Measures Pain: Pain improved (patient with improved pain management with fentanyl 12 mcg patch; decrease need for MS) - Palliative Care Discussion: Met with daughter Reyna, and 2 granddaughters. Discussed briefly transition to hospice and plans for the day. Patient still alert, and interactive with family. Though she has had decreased intake and prognosis most likely hours to days we will go ahead and move forward on discharge with hospice. This is a slightly anxious about the time between when BLS drops her off and hospice nurse arrives, we did discuss the use of the comfort medications, she is going to pick those up. Did make arrangements for hospice infertility medical assistant to meet with them on site later in the morning. Results - Lab Results Lab results reviewed: Yes Grey Bones: 05/11/17 04:20 05/11/17 04:20 Impression and Recommendations - Palliative Care Impression: This is an 86-year-old woman with failure to thrive, 10 pound weight loss over the last few months, patient was forgetful but now presents with acute delirium , and transitioning to end-of-life. Patient has not been having any other fluids other than sips of water, prognosis is expected hours to days. We will move forward in meeting goals to have patient at home. Recommendations/Counseling Done: 1. Acute on chronic pain secondary to multiple fractures in the pubic ramus. Patient does appear much more comfortable on the fentanyl 12 mcg patch, does have the morphine 5 mg for breakthrough pain. Did review with the nurse caring for patient today to provide teaching to family, so they are comfortable in administration until hospice nurse gets there. Also to premedicate prior to BLS transfer. 2. Anxiety, multifactorial in origin. Patient easily reassured with family presence, she does have Lorazepam available for agitation or anxiety this was reviewed with the daughter as well. Patient had received last writes last evening. 3. Advanced care planning. Family meeting patient is still coherent, able to interact with family, though she is weak and continues to transition towards end of life, the goal is to follow through for hospice admit this afternoon. Time Spent: 15 minutes with greater than 50% of this done with counseling regarding goals of care, transition to hospice, and anticipatory guidance as well as coordination with clinical staff
== END 2017-05-13 13:45 | disposition hospice, home (50) | DRG 535 ==
LOC: ED 22:20 → MS3 05-07 03:57
PROVIDERS: ADMIT Internal Medicine; ATTEND Nurse Practitioner
DX: S32.82XA Multiple fractures of pelvis without disruption of pelvic ring, initial encounter for closed fracture (principal); J18.9 Pneumonia, unspecified organism; J96.90 Respiratory failure, unspecified, unspecified whether with hypoxia or hypercapnia; N39.0 Urinary tract infection, site not specified; I13.0 Hypertensive heart and chronic kidney disease with heart failure and stage 1 through stage 4 chronic kidney disease, or unspecified chronic kidney disease; I11.0 Hypertensive heart disease with heart failure; N18.3 Chronic kidney disease, stage 3 (moderate); I50.9 Heart failure, unspecified; F03.90 Unspecified dementia, unspecified severity, without behavioral disturbance, psychotic disturbance, mood disturbance, and anxiety; R41.9 Unspecified symptoms and signs involving cognitive functions and awareness; W18.30XA Fall on same level, unspecified, initial encounter; R32 Unspecified urinary incontinence; R35.0 Frequency of micturition; H40.9 Unspecified glaucoma; H91.90 Unspecified hearing loss, unspecified ear; M19.90 Unspecified osteoarthritis, unspecified site; F41.9 Anxiety disorder, unspecified; Z66 Do not resuscitate; Z51.5 Encounter for palliative care; Z91.81 History of falling; Z79.899 Other long term (current) drug therapy; Z99.81 Dependence on supplemental oxygen; Y92.013 Bedroom of single-family (private) house as the place of occurrence of the external cause; Z74.01 Bed confinement status; Z87.440 Personal history of urinary (tract) infections; Z96.652 Presence of left artificial knee joint
CPT/HCPCS: 36415; 51701; 71045; 72100; 72192; 72220; 80048; 80053; 81001; 81003; 83735; 85025; 93005; 99283; 99284

== ENCOUNTER 2017-05-13 13:53 | Outpatient (CLI) | payer MEDICARE, OTHER | END 2017-05-13 13:54 | disposition hospice, home (50) | LOC: EMS 13:53 | PROVIDERS: ATTEND Surgery | DX: S32.10XA Unspecified fracture of sacrum, initial encounter for closed fracture (principal); N18.3 Chronic kidney disease, stage 3 (moderate); R41.82 Altered mental status, unspecified; W19.XXXA Unspecified fall, initial encounter; Z99.81 Dependence on supplemental oxygen | CPT/HCPCS: A0425; A0428 ==